=== PATIENT | male | born 1965 | race Caucasian/White ===

== ENCOUNTER 2020-08-25 16:29 | Outpatient (CLI) | payer OTHER, SELFPAY ==
--- NOTE | ~2020-08-25 | XR_ITS ---
EXAMINATION: XR shoulder RT min 2V DATE: 08/25/2020 16:53 INDICATION: Generalized right shoulder pain TECHNIQUE: AP internally and externally rotated, AP oblique externally rotated and axillary views of the right shoulder were obtained. COMPARISON: None FINDINGS: Normal alignment. No fracture. Glenohumeral joint is normal. Mild acromioclavicular osteoarthritis. Globular amorphous calcification seen overlying the superior facet footplate of the greater tuberosit y as well as along the lesser tuberosity consistent with calcific tendinitis of the supraspinatus and subscapularis tendons respectively. IMPRESSION: 1. Supraspinatus and subscapularis calcific tendinitis. 2. Mild acromioclavicular osteoarthritis. Reviewed, dictated and finalized at location A.
== END 2020-08-25 16:30 | disposition home or self-care (01) ==
LOC: ANHIMG 16:35
PROVIDERS: PCP Nurse Practitioner; Visit Provider Nurse Practitioner
DX: M25.511 Pain in right shoulder (principal); M75.31 Calcific tendinitis of right shoulder; M19.011 Primary osteoarthritis, right shoulder
CPT/HCPCS: 73030

== ENCOUNTER 2020-08-30 10:49 | Outpatient (CLI) | payer OTHER, SELFPAY ==
--- NOTE | 2020-08-30 12:00 | NEURO_ITS ---
Impression: # Complains of discomfort and numbness in left upper extremity. # Bilateral Carpal Tunnel Syndrome. # No ulnar neuropathy. # Normal needle/EMG exam. Nerve Conduction Studies Anti Sensory Summary Table Stim Site NR Peak (ms) P-T Amp (?V) Site1 Site2 Delta-P (ms) Dist (cm) Juan R (m/s) Left Median Anti Sensory (2-3nd Digit) Wrist 3.6 53.5 Wrist 2-3nd Digit 3.6 14.0 39 Wrist 3.8 46.5 Wrist 2-3nd Digit 3.6 14.0 39 Right Median Anti Sensory (2-3nd Digit) Wrist 3.4 63.2 Wrist 2-3nd Digit 3.4 14.0 41 Wrist 3.5 46.1 Wrist 2-3nd Digit 3.4 14.0 41 Left Radial Anti Sensory (Base 1st Digit) Wrist 2.4 23.9 Wrist Base 1st Digit 2.4 0.0 Right Radial Anti Sensory (Base 1st Digit) Wrist 2.2 9.2 Wrist Base 1st Digit 2.2 0.0 Left Ulnar Anti Sensory (5th Digit) Wrist 2.9 25.7 Wrist 5th Digit 2.9 14.0 48 Right Ulnar Anti Sensory (5th Digit) Wrist 2.6 35.1 Wrist 5th Digit 2.6 14.0 54 Motor Summary Table Stim Site NR Onset (ms) O-P Amp (mV) Site1 Site2 Delta-0 (ms) Dist (cm) Juan R (m/s) Left Median Motor (Abd Poll Brev) Wrist 4.3 2.4 Elbow Wrist 5.3 29.0 55 Elbow 9.6 3.7 Right Median Motor (Abd Poll Brev) Wrist 4.1 3.9 Elbow Wrist 6.5 27.0 42 Elbow 10.6 2.5 Left Ulnar Motor (Abd Dig Minimi) Wrist 2.9 6.9 A Elbow Wrist 5.5 29.0 53 A Elbow 8.4 5.4 Right Ulnar Motor (Abd Dig Minimi) Wrist 2.7 4.1 A Elbow Wrist 5.7 29.0 51 A Elbow 8.4 3.4 F Wave Studies NR F-Lat (ms) L-R F-Lat (ms) Left Median (Mrkrs) (Abd Poll Brev) 33.01 0.79 Right Median (Mrkrs) (Abd Poll Brev) 32.22 0.79 Left Ulnar (Mrkrs) (Abd Dig Min) 32.81 0.12 Right Ulnar (Mrkrs) (Abd Dig Min) 32.93 0.12 EMG Side Muscle Nerve Root Ins Act Fibs Amp Dur Recrt Comment Right 1stDorInt Ulnar C8-T1 Nml Nml Nml Nml Nml Right Ext Indicis Radial (Post Int) C7-8 Nml Nml Nml Nml Nml Right Ext Digitorum Radial (Post Int) C7-8 Nml Nml Nml Nml Nml Right BrachioRad Radial C5-6 Nml Nml Nml Nml Nml Right PronatorTeres Median C6-7 Nml Nml Nml Nml Nml Right Abd Poll Brev Median C8-T1 Nml Nml Nml Nml Nml Left 1stDorInt Ulnar C8-T1 Nml Nml Nml Nml Nml Left Ext Indicis Radial (Post Int) C7-8 Nml Nml Nml Nml Nml Left Ext Digitorum Radial (Post Int) C7-8 Nml Nml Nml Nml Nml Left BrachioRad Radial C5-6 Nml Nml Nml Nml Nml Left PronatorTeres Median C6-7 Nml Nml Nml Nml Nml Left Abd Poll Brev Median C8-T1 Nml Nml Nml Nml Nml MTDD
== END 2020-08-30 10:50 | disposition home or self-care (01) ==
PROVIDERS: PCP Family Medicine; Visit Provider Nurse Practitioner
DX: R20.0 Anesthesia of skin (principal); G56.03 Carpal tunnel syndrome, bilateral upper limbs
CPT/HCPCS: 95886; 95911

== ENCOUNTER 2020-10-27 15:55 | Outpatient (CLI) | payer OTHER, SELFPAY ==
--- NOTE | ~2020-10-27 | MR_ITS ---
EXAMINATION: MR shoulder RT wo con DATE: 10/27/2020 16:55 INDICATION: Right shoulder pain. TECHNIQUE: Magnetic resonance imaging (MRI) of the right shoulder was performed without intravenous c ontrast. Sequences included axial PD-weighted FS FSE, coronal oblique PD-weighted FS FSE and T2-weigh guzman FS FSE, and sagittal oblique T2-weighted FS FSE and T1-weighted FSE. COMPARISON: Right shoulder radiograph 08/25/2020 FINDINGS: Coracoacromial arch: The acromion undersurface is flat in morphology (type I). There is severe acromioclavicular joint ost eoarthritis including inferiorly directed osteophytes. There is mild subacromial/subdeltoid bursitis. Rotator cuff: There is mild supraspinatus and infraspinatus tendinopathy. There are calcifications of supraspinatus tendon. There is mild teres minor tendinopathy. There is mild subscapularis tendinopathy. No tear. T here is no asymmetric fatty atrophy of the rotator cuff muscle bellies. Biceps tendon and glenoid labrum: Biceps tendon is in bicipital groove. There is moderate intra-articular biceps tendinopathy. There is a tear of superior labrum from 10:00 to 12:00 (SLAP tear). Fluid: There is a small glenohumeral joint effusion. Bones/cartilage: The glenoid cartilage is normal. Humeral head cartilage is normal. IMPRESSION: 1. Mild rotator cuff tendinopathy. Calcific tendinitis of supraspinatus tendon. 2. Moderate intra-articular biceps tendinopathy. 3. SLAP tear. 4. Severe acromioclavicular joint osteoarthritis. 5. Mild subacromial/subdeltoid bursitis. 6. Small glenohumeral joint effusion. Reviewed, dictated and finalized at location A.
== END 2020-10-27 15:56 | disposition home or self-care (01) ==
PROVIDERS: PCP Family Medicine; Visit Provider Orthopaedic Surgery
DX: M25.511 Pain in right shoulder (principal); M75.81 Other shoulder lesions, right shoulder; M75.31 Calcific tendinitis of right shoulder; S43.431A Superior glenoid labrum lesion of right shoulder, initial encounter; M19.011 Primary osteoarthritis, right shoulder; M75.51 Bursitis of right shoulder; M25.411 Effusion, right shoulder
CPT/HCPCS: 73221

== ENCOUNTER 2021-03-23 15:40 | Outpatient (CLI) | payer OTHER, SELFPAY ==
--- NOTE | 2021-03-23 15:43 | ECG_ITS ---
Measurements Intervals [place] Rate: 56 P: 58 AR: 155 QRS: -2 QRSD: 107 T: 138 QT: 435 QTc: 421 Interpretive Statements SINUS BRADYCARDIA DELAYED PRECORDIAL R/S TRANSITION LEFT VENTRICULAR HYPERTROPHY AND ST-T CHANGE INFERIOR INFARCT, AGE INDETERMINATE BASELINE ARTIFACT- I, III, AVL, AVF, V5 ABNORMAL ECG Electronically Signed On 03-23-2021 16:24:32 TOP AND TRIM WORKER by London Krueger D.O.
[2021-03-23 16:26] LABS: Anion Gap 11 mmol/L (8-16); Blood Urea Nitrogen 20 mg/dL (9-20); Calcium 10.1 mg/dL (8.4-10.2); Carbon Dioxide 27 mmol/L (22-30); Chloride 101 mmol/L (98-107); Estimated Glomerular Filt Rate > 60; Glucose 179 mg/dL (65-110); Potassium 4.3 mmol/L (3.4-5.0); Sodium 139 mmol/L (137-145)
== END 2021-03-23 15:41 | disposition home or self-care (01) ==
PROVIDERS: Anesthesiology; PCP Family Medicine; Visit Provider Orthopaedic Surgery
DX: Z01.818 Encounter for other preprocedural examination (principal); E11.59 Type 2 diabetes mellitus with other circulatory complications; I10 Essential (primary) hypertension; R94.31 Abnormal electrocardiogram [ECG] [EKG]
CPT/HCPCS: 36415; 80048; 93005

== ENCOUNTER 2021-03-23 15:50 | Outpatient (CLI) | payer OTHER, SELFPAY ==
--- NOTE | ~2021-03-23 | XR_ITS ---
EXAMINATION: XR thoracic spine 2V DATE: 03/23/2021 17:02 INDICATION: Shoulder and back pain TECHNIQUE: AP and lateral views of the thoracic spine were obtained. COMPARISON: None. FINDINGS: There are bridging osteophytes at multiple levels in the spine, consistent with diffuse idi opathic skeletal hyperostosis (DISH). There is no fracture, dislocation, or subluxation. Changes of p rior cardiac surgery are noted. There are apparent patchy airspace opacities of the lungs. IMPRESSION: 1. Diffuse idiopathic skeletal hyperostosis (DISH). 2. Possible patchy airspace opacities of the lungs which could be infectious or inflammatory. Correla te for shortness of breath and/or cough. Reviewed, dictated and finalized at location F. STIGATIONS DIRECTOR IMPRESSION: 1. Diffuse idiopathic skeletal hyperostosis (DISH). 2. Possible patchy airspace opacities of the lungs which could be infectious or inflammatory. Correlate for shortness of breath and/or cough.
--- NOTE | ~2021-03-23 | XR_ITS ---
EXAMINATION:XR_CERV2-3V_CR DATE: 03/23/2021 17:01 INDICATION: Neck pain TECHNIQUE: AP, lateral, and odontoid views of the cervical spine are provided. COMPARISON: None FINDINGS: Alignment is normal. The odontoid is intact. No fracture is identified. There is reversal o f normal cervical lordosis. The vertebral body heights are maintained. There is moderate loss of inte rvertebral disc space height from C5-6 through C7-T1. Small degenerative osteophytes project from the anterior endplates of multiple vertebral bodies. There is moderate facet and uncovertebral joint ost eoarthritis of the lower cervical spine. Prevertebral soft tissues are normal. IMPRESSION: 1. Moderate lower cervical spondylosis without acute findings. Reviewed, dictated and finalized at location F. FIRST ASSIST REGISTERED NURSE
[2021-03-23 16:27] LABS: Hemoglobin A1C 7.8 % (<5.7)
== END 2021-03-23 15:51 | disposition home or self-care (01) ==
PROVIDERS: PCP Family Medicine; Visit Provider Nurse Practitioner Family
DX: E11.9 Type 2 diabetes mellitus without complications (principal); R20.0 Anesthesia of skin; M25.512 Pain in left shoulder; M48.14 Ankylosing hyperostosis [Forestier], thoracic region; R91.8 Other nonspecific abnormal finding of lung field; M47.812 Spondylosis without myelopathy or radiculopathy, cervical region
CPT/HCPCS: 36415; 72040; 72070; 80048; 83036; 93005

== ENCOUNTER 2021-03-28 00:48 | Day surgery (SDC) | payer OTHER, SELFPAY ==
[2021-03-22 12:35] VITALS: BMI 36.4
--- NOTE | 2021-03-22 12:52 | PC.NURSE ---
Report to the Outpatient Waiting Room, entrance under the green pavilion located off [facility], at time 11:30 on date 03/28/21. OR Time: 1:30. - You will be asked a series of questions to screen for COVID 19 for your protection. - A mask is required within the hospital. - No visitors are allowed at this time. Preoperative COVID Testing Requirements: No COVID Test needed if: (proof is required; if not received patient will have Rapid Test prior to entry) - Patient has received COVID Vaccine at least 14 days prior to procedure date or - Patient has positive COVID test result within last 90 days of surgery date. COVID Test needed if above criteria is not met Patients may have clear liquids (water, carbonated beverages, clear teas, apple juice) until 3 hours prior to surgery (10:30) with a maximum of 20 ounces. - No food from midnight until time of surgery Take the following medications with a SIP of water the morning of surgery: ATENOLOL Medications to discontinue per physician: VITAMINS/SUPPLEMENTS Date to take last dose: 03/24/[address] 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 No jewelry (including any body piercings) or valuables the day of surgery, leave them at home. Please take a shower or bath the night before, or the morning of, surgery with an antibacterial soap. Wear comfortable, loose fitting clothing. - Jewelry must be removed prior to entering the operating room. Rings and piercings that are not removed may be cut off. - The hospital will not accept responsibility for valuables. - Please leave all valuables, including medications, at home the day of surgery. If you are going home after surgery, a licensed locomotive driver must drive you home. - NO public transportation without another adult. - We recommend that an adult stay with you for 24 hours following discharge. - We also recommend that you do not drive, make important decision, drink alcoholic beverages, or take any drugs that were not prescribed by your health care provider for at least 24 hours after your discharge time. Follow any additional instructions given to you from your surgeon. Telephone instructions given to ZARIA UGALDE and asked if any additional questions and then verbalized understanding. Patient advised to call surgeon office or pre surgery nurse liaison [phone] if any additional questions.
--- NOTE | 2021-03-27 15:29 | WPDANESEPPF ---
Anes - Initial Pre Proc Eval Procedure: Operation Date: 03/28/21 13:30 Proposed Procedures p Left Carpal Tunnel Release - Garry Reyes MD Date/Time: 03/27/21 15:29 Surgeon: Garry Reyes MD Pre Op Diagnosis: left carpal tunnel syndrome Patient Data Age: 55 Gender: M Height: 1.73 m Weight: 108.66 kg Allergies Allergy/AdvReac Type Severity Reaction Status Date / Time ciprofloxacin Allergy Unknown unknown Verified 03/28/21 11:41 Home Medications Medication Instructions Recorded Confirmed Type aspirin 81 mg tablet,delayed 81 mg PO DAILY 01/18/19 03/28/21 History release furosemide 20 mg tablet 20 mg PO QAM 01/18/19 03/28/21 History lisinopril 20 mg tablet 20 mg PO BID 12/01/19 03/28/21 History simvastatin 40 mg tablet 40 mg PO DAILY 10/19/20 03/28/21 History allopurinol 300 mg tablet 300 mg PO DAILY #90 tablet 12/04/20 03/28/21 Rx atenolol 25 mg tablet 25 mg PO BID tablet 12/04/20 03/28/21 History potassium chloride 10 mEq 10 meq PO DAILY tablet 12/04/20 03/28/21 History tablet,extended release pioglitazone 30 mg tablet 30 mg PO DAILY #90 tablet 01/10/21 03/28/21 Rx metformin 500 mg tablet 500 mg PO BID #180 tablet 03/15/21 03/28/21 Rx arginine oxoglurate 350 mg PO DAILY 03/22/21 03/28/21 History [L-Arginine(alpha-ketoglutarat)] fiber 1 tablet PO DAILY 03/22/21 03/28/21 History multivitamin 1 tablet PO DAILY 03/22/21 03/28/21 History omega-3 fatty acids-vitamin E 1 cap PO DAILY 03/22/21 03/28/21 History [Fish Oil] methocarbamol 500 mg tablet 500 mg PO TID PRN #30 tablet 03/23/21 03/23/21 Rx tadalafil 20 mg tablet 20 mg PO DAILY PRN 03/23/21 03/23/21 History Patient hx anesthesia problems: none Family hx anesthesia problems: none Results Review: All pre-operative results and documents have been reviewed as part of the pre-operative evaluation. [facility] Past Medical History Medical History (Updated 03/27/21 @ 15:31 by Haseeb Villa MD) Arthritis Coronary artery disease due to lipid rich plaque Gout due to renal impairment Heart attack High cholesterol Hypertension Obesity DIVYA (obstructive sleep apnea) Smoker Type 2 diabetes mellitus with other circulatory complications Surgical History Surgical History H/O heart artery stent History of heart bypass surgery Family History Family History Father Family history of diabetes mellitus in first degree relative Mother Family history of heart disease in male family member before age 55 Other Depression Diabetes mellitus Family history of allergic disorder Family history of cardiovascular disease Family history of osteoarthritis Heart disease High cholesterol Hypertension Social History Social History Smoking packs per day: 0.5 Smoking cigarettes per day: 10.0 Years smoked: 30 Smoking pack-years: 15.00 Smoking status: Current every day smoker Tobacco type: cigarettes Second hand tobacco smoke exposure: Yes Smoking end date: 08/08/18 Alcohol intake: current Drinks per week: 4 Substance use: never Substance use type: does not use Living arrangements: alone Additional occupation/education comments: self-employed Gender identity (if verbalized by the patient): Male Spiritual care concerns: No Agree to blood products: Yes Anes - Eval Final PreProcedure Day of Procedure 03/27/21 15:29 Patient weight: obese Heart: regular rate and rhythm Lungs: clear to auscultation and normal air movement Airway: Mallampati scale class II Neurological: alert and oriented Last oral intake: >/= 8 hours ASA classification: III Emergent: no Anesthetic plan: proceed Anesthesia type and monitoring: general LMA Results Review: All pre-operative results and documents have been reviewed as part of the pre-operative evaluation. Informe
[2021-03-28] VITALS (8 sets, daily range): BP systolic 85–146; BP diastolic 51–93; PULSE 53–66; RESP 10–20; TEMP 36.1–36.5; O2SAT 96–99
--- NOTE | 2021-03-28 07:22 | WPDHPUPDATE1 ---
History and Physical Update Update Date/Time: 03/28/21 07:22 History and Physical has been reviewed, including an updated exam of the patient. There are NO changes in the patient's condition. Risks, benefits, and alternatives have been discussed and questions answered. Patient agrees to proceed with procedure.
[2021-03-28] MEDS: LACTATED RINGERS 1,000 ML 30 ML IV CONT (12:40)
[2021-03-28 12:47] LABS: Glucose Point of Care 167 mg/dl (65-105)
[2021-03-28] MEDS: ACETAMINOPHEN 500 MG TABLET 1000 MG PO (13:00)
[2021-03-28] MEDS: CELECOXIB 200 MG CAPSULE PO (13:00)
--- NOTE | 2021-03-28 14:24 | PM.IMHP ---
H&P: HPI History of Present Illness Date/Time: 03/28/21 14:24 Pt presents with Right shoulder pain. He states the pain is located at the superior shoulder, at the AC joint-region, that does not radiate. ROM is good unless he overworks it, then it becomes slightly limited. He notes numbness/tingling in both hands. He recently underwent bilateral EMG/NCS which showed bilateral CTS. MRI reported calcific tendinitis, SLAP tear and ACJ DJD. He received a subacromial injection 11/20/20 which, he states, worked very well for a few weeks. His pain is beginning to return. He is not yet needing medication for treatment. His left hand has carpal tunnel syndrome and he is here for left carpal tunnel release. Dominant hand: right Current symptoms: Reports stiffness and weakness Location: ACJ and anterior Character: intermittent Onset: >1 year Exacerbated by: lifting and prolonged activity Previous treatments: Anti-inflammatory meds: right, Ice: right and Injections: right Improved by treatment/surgery: some Chief Complaint: LEFT HAND CARPAL TUNNEL SYNDROME Review of Systems Review of Systems: All systems reviewed & are unremarkable except as noted in HPI and below PMFSH Past Medical History Medical History Arthritis Coronary artery disease due to lipid rich plaque Gout due to renal impairment Heart attack High cholesterol Hypertension Obesity DIVYA (obstructive sleep apnea) Smoker Type 2 diabetes mellitus with other circulatory complications Surgical History Surgical History H/O heart artery stent History of heart bypass surgery Family History Family History Father Family history of diabetes mellitus in first degree relative Mother Family history of heart disease in male family member before age 55 Other Depression Diabetes mellitus Family history of allergic disorder Family history of cardiovascular disease Family history of osteoarthritis Heart disease High cholesterol Hypertension Social History Social History Smoking packs per day: 0.5 Smoking cigarettes per day: 10.0 Years smoked: 30 Smoking pack-years: 15.00 Smoking status: Current every day smoker Tobacco type: cigarettes Second hand tobacco smoke exposure: Yes Smoking end date: 08/08/18 Alcohol intake: current Drinks per week: 4 Substance use: never Substance use type: does not use Living arrangements: alone Additional occupation/education comments: self-employed Gender identity (if verbalized by the patient): Male Spiritual care concerns: No Agree to blood products: Yes Meds Home Medications and Allergies Home Medications Medication Instructions Recorded Confirmed Type aspirin 81 mg tablet,delayed 81 mg PO DAILY 01/18/19 03/28/21 History release furosemide 20 mg tablet 20 mg PO QAM 01/18/19 03/28/21 History lisinopril 20 mg tablet 20 mg PO BID 12/01/19 03/28/21 History simvastatin 40 mg tablet 40 mg PO DAILY 10/19/20 03/28/21 History allopurinol 300 mg tablet 300 mg PO DAILY #90 tablet 12/04/20 03/28/21 Rx atenolol 25 mg tablet 25 mg PO BID tablet 12/04/20 03/28/21 History potassium chloride 10 mEq 10 meq PO DAILY tablet 12/04/20 03/28/21 History tablet,extended release pioglitazone 30 mg tablet 30 mg PO DAILY #90 tablet 01/10/21 03/28/21 Rx metformin 500 mg tablet 500 mg PO BID #180 tablet 03/15/21 03/28/21 Rx arginine oxoglurate 350 mg PO DAILY 03/22/21 03/28/21 History [L-Arginine(alpha-ketoglutarat)] fiber 1 tablet PO DAILY 03/22/21 03/28/21 History multivitamin 1 tablet PO DAILY 03/22/21 03/28/21 History omega-3 fatty acids-vitamin E 1 cap PO DAILY 03/22/21 03/28/21 History [Fish Oil] methocarbamol 500 mg tablet 500 mg PO TID PRN #30 tablet 03/23/21 03/23/21 Rx tadalafil 20 mg tab
[2021-03-28] MEDS: ceFAZolin 2 GM/D5W 50 ML 2 GM/50 ML BAG IVPB (14:35)
--- NOTE | 2021-03-28 15:34 | W.PM.PROC2 ---
Procedure Note - Detailed Date of Procedure 03/28/21 Pre-op Diagnosis left carpal tunnel syndrome Post-op Diagnosis same Procedure Performed LEFT CTR Surgeon Garry Reyes MD Anesthesia general Description of Procedure THE LEFT UPPER EXTREMITY WAS PREPPED AND DRAPED IN THE STERILE FASHION. THE CARPAL TUNNEL WAS MARKED FROM THE FLEXED RING FINGER. THE TORNEQUET WAS INFLATED. THE INCISION WAS MADE AT THE MID PALM DOWN THROUGH THE SUBCUTANEOUS TISSUES. THE PALMAR FASCIA WAS IDENTIFIED. AN INCISION WAS MADE THROUGH THE PALMAR FASCIA UNTIL THE CARPAL TUNNEL WAS ENTERED. A MOSQUITO HEMOSTAT WAS USED TO PROTECT THE MEDIAN NERVE WHILE THE INCISION TO THE PALMAR FASCIA WAS COMPLETE PROXIMALLY AND DISTALLY TO THE CARDINAL LINE. NEXT, THE TRANSVERSE CARPAL LIGAMENT WAS IDENTIFIED. A FREIER ELEVATOR WAS USED TO SEPARATE THE NERVE FROM THE LIGAMENT. A METZENBAUM SCISSORS WAS THEN USED TO INCISE THE TRANSVERSE CARPAL LIGAMENT UNTIL THERE WAS A COMPLETE RELEASE OF THE CARPAL TUNNEL. THE MEDIAN NERVE WAS INTACT. THE TOURNEQUET WAS DEFLATED. THE BLEEDERS WERE CAUTERIZED. THE WOUND WAS WASHED. THE SKIN WAS APPROXIMATED WITH 4-0 NYLON SUTURE. STERILE DRESSING WAS APPLIED. PATIENT WAS EXTUBATED AND SENT TO THE RECOVERY ROOM. Estimated Blood Loss 5 Complications No immediate complications Condition stable Disposition PACU
[2021-03-28 15:52] LABS: Glucose Point of Care 168 mg/dl (65-105)
== END 2021-03-28 17:10 | disposition home or self-care (01) ==
PROVIDERS: PCP Family Medicine; Visit Provider Orthopaedic Surgery
PROC: (CPT 64721; principal; 2021-03-28 13:30)
DX: G56.02 Carpal tunnel syndrome, left upper limb (principal); I25.10 Atherosclerotic heart disease of native coronary artery without angina pectoris; I10 Essential (primary) hypertension; I25.2 Old myocardial infarction; M10.9 Gout, unspecified; E11.9 Type 2 diabetes mellitus without complications; E78.00 Pure hypercholesterolemia, unspecified; G47.33 Obstructive sleep apnea (adult) (pediatric); E66.9 Obesity, unspecified; Z68.36 Body mass index [BMI] 36.0-36.9, adult; Z95.1 Presence of aortocoronary bypass graft; Z95.5 Presence of coronary angioplasty implant and graft; F17.210 Nicotine dependence, cigarettes, uncomplicated; Z79.82 Long term (current) use of aspirin; Z79.84 Long term (current) use of oral hypoglycemic drugs
CPT/HCPCS: 64721; 82948; A9270; J0690; J1100; J2250; J2405; J2704; J3010; J7120

== ENCOUNTER 2022-01-01 17:02 | Outpatient (CLI) | payer OTHER, SELFPAY ==
[2022-01-01 17:39] LABS: Basophils Absolute Auto 0.1 K/mm3 (0.0-0.1); Basophils Percent Auto 0.6 % (0.2-1.2); Eosinophils Absolute Auto 0.3 K/mm3 (0-0.3); Eosinophils Percent Auto 3.9 % (0-4.4); Hematocrit 42.1 % (42.0-52.0); Immature Granulocyte Absolute 0.03 K/mm3 (0.00-0.031); Immature Granulocyte Percent A 0.4 % (0-0.5); Lymphocytes Absolute Auto 1.63 K/mm3 (0.9-3.2); Lymphocytes Percent Auto 19.8 % (18.3-44.2); Mean Corpuscular HGB Conc 35.6 g/dl (32-36); Mean Corpuscular Hemoglobin 32.7 pg (26-34); Mean Corpuscular Volume 91.7 fl (80-100); Mean Platelet Volume 10.6 fl (7.4-10.4); Monocytes Absolute Auto 0.7 K/mm3 (0.1-0.6); Neutrophils Absolute Auto 5.5 K/mm3 (1.3-6.7); Neutrophils Percent Auto 66.3 % (45.5-73.1); Platelet Count Result 198 k/mm3 (150-375); Red Blood Count 4.59 M/mm3 (4.6-6.20); Red Cell Distribution Width 13.7 % (11.5-14.5); White Blood Count 8.2 K/mm3 (4.5-10.0)
[2022-01-01 17:53] LABS: Alanine Aminotransferase 20 U/L (6-50); Albumin Level 4.6 g/dL (3.5-5.1); Alkaline Phosphatase 91 U/L (38-126); Anion Gap 12 mmol/L (8-16); Aspartate Amino Transferase 21 U/L (17-59); Bilirubin,Total 0.6 mg/dL (0.2-1.3); Blood Urea Nitrogen 13 mg/dL (9-20); Calcium 9.3 mg/dL (8.4-10.2); Carbon Dioxide 25 mmol/L (22-30); Chloride 102 mmol/L (98-107); Cholesterol 183 mg/dL (0-200); Estimated Glomerular Filt Rate > 60; Glucose 115 mg/dL (65-110); HDL Direct 68 mg/dL; Potassium 3.5 mmol/L (3.4-5.0); Sodium 139 mmol/L (137-145); Triglycerides 117 mg/dL (<150)
[2022-01-01 18:04] LABS: LDL Cholesterol Direct 74 mg/dL
[2022-01-01 18:23] LABS: Prostate Specific Antigen 0.8 ng/mL (< OR = 4.0)
[2022-01-01 18:37] LABS: Creatinine Urine 56.3 mg/dL
[2022-01-01 18:54] LABS: Vitamin D 25 Hydroxy 32.1 ng/mL
[2022-01-01 19:00] LABS: MALB Creatinine Ratio 415.5 mg/g (0-30); Microalbumin Urine Random 233.9 mg/L (0-16.7)
[2022-01-01 20:11] LABS: Hemoglobin A1C 6.6 % (<5.7)
== END 2022-01-01 17:03 | disposition home or self-care (01) ==
LOC: ANHLAB 17:03
PROVIDERS: PCP Family Medicine; Visit Provider Nurse Practitioner Family
DX: Z12.5 Encounter for screening for malignant neoplasm of prostate (principal); E11.9 Type 2 diabetes mellitus without complications; E55.9 Vitamin D deficiency, unspecified; E78.5 Hyperlipidemia, unspecified; E03.9 Hypothyroidism, unspecified; I10 Essential (primary) hypertension
CPT/HCPCS: 36415; 80053; 80061; 82043; 82306; 83036; 84153; 84443; 85025; G0103

== ENCOUNTER 2022-06-27 17:12 | Outpatient (CLI) | payer OTHER, SELFPAY ==
--- NOTE | ~2022-06-27 | XR_ITS ---
EXAMINATION: XR chest 2V 06/27/2022 17:25 INDICATION: Chest pain PROCEDURE: 2 view chest COMPARISON: 03/31/2006 FINDINGS: The lungs are clear. The cardiomediastinal silhouette is within normal limits. There are no pleural effusions. There is no pneumothorax suspected. Status post median sternotomy for CABG. IMPRESSION: 1: NO ACUTE CARDIOPULMONARY DISEASE. Reviewed, dictated and finalized at location A.
[2022-06-27 18:07] LABS: Hemoglobin A1C 6.6 % (<5.7)
== END 2022-06-27 17:13 | disposition home or self-care (01) ==
LOC: ANHIMG 17:14
PROVIDERS: PCP Family Medicine; Visit Provider Nurse Practitioner Family
DX: R07.89 Other chest pain (principal); E11.9 Type 2 diabetes mellitus without complications
CPT/HCPCS: 36415; 71046; 80053; 80061; 83036

== ENCOUNTER 2023-01-15 17:01 | Outpatient (CLI) | payer OTHER, SELFPAY ==
[2023-01-15 18:07] LABS: Basophils Percent Auto 0.5 % (0.2-1.2); Eosinophils Absolute Auto 0.2 K/mm3 (0-0.3); Eosinophils Percent Auto 2.6 % (0-4.4); Hemoglobin 14.5 g/dL (14.0-18.0); Immature Granulocyte Absolute 0.01 K/mm3 (0.00-0.031); Immature Granulocyte Percent A 0.2 % (0-0.5); Lymphocytes Absolute Auto 1.11 K/mm3 (0.9-3.2); Mean Corpuscular HGB Conc 34.5 g/dl (32-36); Mean Corpuscular Hemoglobin 32.2 pg (26-34); Mean Corpuscular Volume 93.3 fl (80-100); Mean Platelet Volume 10.7 fl (7.4-10.4); Monocytes Absolute Auto 0.6 K/mm3 (0.1-0.6); Monocytes Percent Auto 9.8 % (2.6-8.5); Neutrophils Percent Auto 67.9 % (45.5-73.1); Platelet Count Result 199 k/mm3 (150-375); Red Cell Distribution Width 13.9 % (11.5-14.5); White Blood Count 5.8 K/mm3 (4.5-10.0)
[2023-01-15 18:54] LABS: Alanine Aminotransferase 18 U/L (6-50); Albumin Level 4.6 g/dL (3.5-5.1); Alkaline Phosphatase 78 U/L (38-126); Anion Gap 8 mmol/L (8-16); Aspartate Amino Transferase 24 U/L (17-59); Bilirubin,Total 0.7 mg/dL (0.2-1.3); Blood Urea Nitrogen 15 mg/dL (9-20); Calcium 9.6 mg/dL (8.4-10.2); Carbon Dioxide 23 mmol/L (22-30); Chloride 106 mmol/L (98-107); Cholesterol 180 mg/dL (0-200); Estimated Glomerular Filt Rate > 60; Glucose 100 mg/dL (65-110); HDL Direct 60 mg/dL; LDL Cholesterol Direct 90 mg/dL; Sodium 137 mmol/L (137-145); Triglycerides 54 mg/dL (<150)
[2023-01-15 19:15] LABS: Hemoglobin A1C 6.2 % (<5.7)
== END 2023-01-15 17:02 | disposition home or self-care (01) ==
LOC: ANHLAB 17:02
PROVIDERS: PCP Family Medicine; Visit Provider Nurse Practitioner Family
DX: R73.03 Prediabetes (principal); I10 Essential (primary) hypertension; Z13.220 Encounter for screening for lipoid disorders; Z13.29 Encounter for screening for other suspected endocrine disorder; Z00.00 Encounter for general adult medical examination without abnormal findings
CPT/HCPCS: 36415; 80053; 80061; 83036; 84443; 85025

== ENCOUNTER 2023-12-09 12:22 | Outpatient (CLI) | payer OTHER, SELFPAY ==
[2023-12-09 12:58] LABS: Basophils Absolute Auto 0.1 K/mm3 (0.0-0.1); Basophils Percent Auto 0.7 % (0.2-1.2); Eosinophils Absolute Auto 0.4 K/mm3 (0-0.3); Eosinophils Percent Auto 4.8 % (0-4.4); Hematocrit 41.3 % (42.0-52.0); Hemoglobin 14.1 g/dL (14.0-18.0); Immature Granulocyte Absolute 0.02 K/mm3 (0.00-0.031); Immature Granulocyte Percent A 0.3 % (0-0.5); Lymphocytes Absolute Auto 1.44 K/mm3 (0.9-3.2); Lymphocytes Percent Auto 19.8 % (18.3-44.2); Mean Corpuscular HGB Conc 34.1 g/dl (32-36); Mean Corpuscular Hemoglobin 32.6 pg (26-34); Mean Corpuscular Volume 95.6 fl (80-100); Mean Platelet Volume 10.6 fl (7.4-10.4); Monocytes Absolute Auto 0.8 K/mm3 (0.1-0.6); Monocytes Percent Auto 11.2 % (2.6-8.5); Neutrophils Absolute Auto 4.6 K/mm3 (1.3-6.7); Neutrophils Percent Auto 63.2 % (45.5-73.1); Platelet Count Result 197 k/mm3 (150-375); Red Blood Count 4.32 M/mm3 (4.6-6.20); White Blood Count 7.3 K/mm3 (4.5-10.0)
[2023-12-09 13:09] LABS: Hemoglobin A1C 6.2 % (<5.7)
[2023-12-09 13:11] LABS: Alanine Aminotransferase 19 U/L (6-50); Albumin Level 4.6 g/dL (3.5-5.1); Alkaline Phosphatase 64 U/L (38-126); Anion Gap 9 mmol/L (4-12); Aspartate Amino Transferase 28 U/L (17-59); Bilirubin,Total 0.6 mg/dL (0.2-1.3); Blood Urea Nitrogen 21 mg/dL (9-20); Calcium 9.4 mg/dL (8.4-10.2); Carbon Dioxide 23 mmol/L (22-30); Chloride 106 mmol/L (98-107); Cholesterol 161 mg/dL (0-200); Estimated Glomerular Filt Rate > 60; Glucose 124 mg/dL (65-110); HDL Direct 59 mg/dL; Potassium 4.3 mmol/L (3.4-5.0); Sodium 138 mmol/L (137-145); Triglycerides 93 mg/dL (<150)
[2023-12-09 13:21] LABS: LDL Cholesterol Direct 73 mg/dL
[2023-12-09 13:25] LABS: Creatinine Urine 98.5 mg/dL
[2023-12-09 13:27] LABS: Vitamin D 25 Hydroxy 37.6 ng/mL
[2023-12-09 13:28] LABS: MALB Creatinine Ratio 120.6 mg/g (0-30); Microalbumin Urine Random 118.8 mg/L (0-16.7)
[2023-12-09 13:40] LABS: Prostate Specific Antigen 0.8 ng/mL (< OR = 4.0)
== END 2023-12-09 12:23 | disposition home or self-care (01) ==
LOC: ANHLAB 12:24
PROVIDERS: PCP Family Medicine; Visit Provider Nurse Practitioner Family
DX: Z00.00 Encounter for general adult medical examination without abnormal findings (principal); Z12.5 Encounter for screening for malignant neoplasm of prostate; R20.2 Paresthesia of skin; E55.9 Vitamin D deficiency, unspecified; E11.9 Type 2 diabetes mellitus without complications; E78.5 Hyperlipidemia, unspecified; I10 Essential (primary) hypertension
CPT/HCPCS: 36415; 80053; 80061; 82043; 82306; 82607; 83036; 84153; 84443; 85025; G0103

== ENCOUNTER 2024-06-08 15:41 | Outpatient (CLI) | payer OTHER, SELFPAY ==
--- OUTSIDE RECORDS SUMMARY | 2024-06-08 17:07 | XMS_ITS | Clinical Summary ---
Author Organization [facility] Address [address] [place] [address] Care Team Providers Care Validation Specialist Name Role Phone Thiago Davies MD Unavailable [phone] Chandrika Kurtz NP Primary Care Provider [phone] Allergies Active Allergy Reactions Criticality Noted Date Comments Cephalexin Swelling 02/09/2016 Medications aspirin EC (ASPIRIN EC) 81 MG tablet Take 1 tablet by mouth daily. 12/25/19 13 Active nitroglycerin (NITROSTAT) 0.[address] 1 tablet (0.4 mg total) under the tongue every 5 (five) minutes as needed for Chest Pain (Maximum of 3 doses.). If no relief, contact 911. 25 tablet 1 07/18/19 17 Active allopurinol 300 MG tablet Take 1 tablet (300 mg total) by mouth daily. 90 tablet 07/31/19 19 Active metFORMIN 500 MG tablet Take 1 tablet (500 mg total) by mouth 2 (two) times daily with meals. Contact primary care physician for further refills 60 tablet 1 08/17/19 20 Active glipiZIDE (GLUCOTROL) 5 MG tablet Take 1 tablet by mouth daily. 02/07/20 22 Active methocarbamol (ROBAXIN) 500 MG tablet Take 500 mg by mouth 3 (three) times daily as needed. 03/28/19 23 Active lisinopril (PRINIVIL) 40 MG tablet Take 1 tablet (40 mg total) by mouth daily. 90 tablet 3 04/16/19 23 Active tadalafil (CIALIS) 20 MG tablet Take 1 tablet (20 mg total) by mouth daily as needed. 06/01/19 23 Active pioglitazone (ACTOS) 30 MG tablet Take 1 tablet (30 mg total) by mouth daily. 08/27/19 23 Active furosemide (LASIX) 20 MG tablet Take 1 tablet by mouth once daily 90 tablet 3 08/05/19 24 Active potassium chloride CR (K-TAB) 10 MEQ Tab CR tablet Take 1 tablet by mouth once daily 90 tablet 3 08/05/19 24 Active rosuvastatin (CRESTOR) 40 MG tablet take 1 tablet by mouth nightly at bedtime 90 tablet 3 08/05/19 24 Active atenolol (TENORMIN) 25 MG tablet Take 1 tablet by mouth twice daily 180 tablet 3 09/17/19 24 Active potassium chloride CR 10 MEQ tablet Take 1 tablet (10 mEq total) by mouth daily. 90 tablet 2 06/27/19 21 022 Discontinued Active Problems Problem Noted Date Diagnosed Date Chest pain 08/10/2019 DIVYA on CPAP 02/09/2016 CAD (coronary artery disease) Essential hypertension Hyperlipidemia Immunizations Name Administration Dates Next Due Fluarix 12/30/2011 PFIZER COVID-19 (ORIGINAL FO RMULATION, PURPLE CAP) mRNA, LNP-S, PF, 30 MCG/0.3 ML DOSE 06/06/2020,05/16/2020 Family History Medical History Relation Comments Coronary artery disease Father no premature vascular disease Other Relation Status Comments Father Other Social History Tobacco Use Types Packs/Day Years Used Date Smoking Tobacco: Former Cigarettes Q uit: 12/2013 Smokeless Tobacco: Never Tobacco Cessation:Counseling Given: Not Answered Comments:smoked for 15 years Alcohol Use Standard Drinks/Week Comments Yes 0 (1 standard drink = 0.6 oz pur e alcohol) socially Sex and Gender Information Value Date Recorded Sex Assigned at Not on file Legal Sex Male 3:40 AM CDT Gender Identity Not on file Sexual Orientation Not on file 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 Not on file Not on file Last Filed Vital Signs Vital Sign Reading Time Taken Comments Blood Pressure 122/88 04/07/2023 1:08 PM NEWSP[employer]ER SU[employer]CRIPTION SOLICITOR Pulse 65 04/07/2023 1:08 PM NEWSP[employer]ER SUBSCRIPTION SOLICITOR Temperature 36.7 C (98 F) 08/17/2019 8:15 AM CDT Respiratory Rate 20 08/17/2019 4:00 AM CDT Oxygen Saturation 98% 04/07/2023 1:08 PM NEWSPAPER SUBSCRIPTION SOLICITOR Inhaled Oxygen Concentration - - Weight 105.2 kg (232 lb) 04/07/2023 1:08 PM NEWSPAPER SUBSCRIPTION SOLICITOR Height 172.7 cm (5' 8 ) 04/07/2023 1:08 PM NEWSPAPER SUBSCRIPTION SOLICITOR Body Mass Index 35.28 04/07/2023 1:08 PM NEWSPAPER SUBSCRIPTION SOLICITOR Plan of Treatment Health Maintenance Due Date Last Done Comments Colorectal Cancer Screening Colonoscopy (10 Years) 1967 Annual Physical 07/13/1970 Pneumococcal Vaccine: Pediatrics (0 to 5 Years) and At-Risk Patients (6 to 64 Years) (1 of 2 - PCV) 07/13/1973 Hepatitis C 07/13/1985 DTaP, Tdap and Td Vaccines (1 - Tdap) 07/13/1986 Hepatitis B Vaccines (1 of 3 - 19+ 3-dose series) 07/13/1986 Zoster Vaccines (1 of 2) 07/13/2017 COVID-19 Vaccine (3 - season) 2023 06/06/2020, 05/16/2020 Influenza Adult (#1) 2023 12/30/2011 ASCVD LDL 05/07/2024 05/07/2023, 09/2022, 10/03/2021, Additional history exists Meningococcal B Vaccine Aged Out No l onger eligible based on patient's age to complete this topic Meningococcal Vaccine Aged Out No miguel eliezer eligible based on patient's age to complete this topic RSV Immunizations Under 20 Months Aged Out No longer eligible based on patient's age to complete this topic Medical Devices Implanted Type Area Sap Project Manager Device Identifier Shelf Expiration Date Model / Serial / Lot Wire Sut 18in [id number] 7;.5 False Pass; Ccs-1 Mfil; Cnv - [id number] Implanted:Qty: 3 on 08/13/2019 by Scotty Chiang RNFA at [facility] Wire N/A: Sternum [employer] 12/09/2023 [id number] / / [id number] Description:STERNAL WIRES X 3 SANDEE BUTCHER ALSO HELPED WITH WIRES Suture Sternotomy Kit - [id number] Implanted:Qty: 5 on 08/13/2019 by Scotty Chiang RNFA at [facility] Wire N/A: Sternum [employer] 12/09/2023 [id number] / / [id number] Description:STERNAL WIRES X 5 SANDEE ETIENNE ALSO HELPED WITH WIRES Procedures Procedure Name Priority Date/Time Associated Diagnosis Comments LIPID PANEL Routine 05/07/2023 4:34 PM NEWSP[employer]ER SU[employer]CRIPTION SOLICITOR Coronary artery disease involving [place] coronary artery of [place] heart without angina pectoris from Last 3 Months or Most Recently Relevant to Health Maintenance Results * LIPID PANEL (05/07/2023 4:34 PM NEWSPAPER SUBSCRIPTION SOLICITOR) CHOLESTEROL 151 <200 MG/DL 05/07/2023 5:31 PM NEWSPAPER SUBSCRIPTION SOLICITOR [facility] TRIGLYCERIDES 78 <150 MG/DL 05/07/2023 5:[address] [facility] HDL 67 >40.0 MG/DL 05/07/2023 5:[address] [facility] LDL (CALCULATED) 68 <100 MG/DL 05/07/19 5:[address] [facility] NON HDL CHOLESTEROL 84 <130 MG/DL 05/07 5:[address] [facility] CHOL/HDL RATIO 2.3 0.0 - 4.5 05/07/2023 5:[address] [facility] VLDL CALCULATION 16 5 - 55 MG/DL 05/07/2023 5:[address] [facility] LIPID INTERPRETATION 05/07/2023 5:[address] [facility] Comment: NIH CONCENSUS REPORT RECOMMENDATIONS: ADULT CHILD LOW RISK: CHOLESTEROL <200 <170 TRIGLYCERIDE <150 --- HDL >=60 --- LDL <100 <110 BORDERLINE: CHOLESTEROL 200-239 170-199 TRIGLYCERIDE 150-199 --- HDL 40-59 --- LDL 100-159 110-129 HIGH RISK: CHOLESTEROL >=240 >=200 TRIGLYCERIDE >=200 --- HDL <40 --- LDL >=160 >=130 05/07/2023 4:34 PM NEWSPAPER SUBSCRIPTION SOLICITOR us Rony Olea NP LABORATORY Final Result [facility] [address] [place] [address], from Last 3 Months or Most Recently Relevant to Health Maintenance Insurance GREER Advance Directives * Full Code (Latest Code Status on File) Date Activated Date Inactivated Comments 08/10/2019 2:15 PM 08/17/2019 6:49 PM * Full Code Date Activated Date Inactivated Comments 08/10/2019 12:56 AM 08/10/2019 2:15 PM Care Teams Validation Specialist Relationship Specialty Start Date End Date Chandrika Kurtz NP [facility]. [address] [place] [address] PCP - General NURSE PRACTITIONER 08/09/19 Thiago Davies MD [facility] [address] [place] [address] [place] [employer] Operator CARDIOVASCULAR DISEASE 05/22/17
--- OUTSIDE RECORDS SUMMARY | 2024-06-08 17:07 | XMS_ITS | Encounter Summary ---
Author Organization [facility] Address [facility] [place] [address] Care Team Providers Care Repair Department Manager Name Role Phone Thiago Davies MD Unavailable [phone] Chandrika Kurtz NP Primary Care Provider [phone] Encounter Details Date Type Department Care Team (Late st Contact Info) Description 08/05/2017 Abstract [facility], [facility] [address] [place], [place] [id number] Sharif Sorensen MA Social History Tobacco Use Types Packs/Day Years Used Date Smoking Tobacco: Former Cigarettes Q uit: 12/2013 Smokeless Tobacco: Never Comments:smoked for 15 years Alcohol Use Standard Drinks/Week Comments Yes 0 (1 standard drink = 0.6 oz pur e alcohol) socially Sex and Gender Information Value Date Recorded Sex Assigned at Not on file Legal Sex Male 3:40 AM CDT Gender Identity Not on file Sexual Orientation Not on file 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 Not on file Not on file documented as of this encounter Plan of Treatment Not on file documented as of this encounter Procedures Procedure Name Priority Date/Time Associated Diagnosis Comments CBC (OUTSIDE LAB) Routine 05/19/2019 COMPREHENSIVE METABOLIC PANEL Routine 05/19/2019 LIPID PANEL Routine 05/19/2019 HEMOGLOBIN, GLYCOSYLATED Routine 05/19/2019 CBC (OUTSIDE LAB) Routine 06/11/2017 LIPID PANEL Routine 06/11/2017 HEMOGLOBIN, GLYCOSYLATED Routine 06/11/2017 THYROID STIM HORMONE TSH Routine 06/11/2017 documented in this encounter Results * HEMOGLOBIN, GLYCOSYLATED (05/19/2019) HGB A1C 8.6 05/19/2019 us Doc [facility]AT[facility] Final Result * LIPID PANEL (05/19/2019) Pathologist [facility] CHOLESTEROL 166 HDL 57 TRIGLYCERIDES 182 LDL (CALCULATED) 73 05/19/2019 us Doc [facility] Final Result * COMPREHENSIVE METABOLIC PANEL (05/19/2019) SODIUM S/P/B 138 POTASSIUM S/P/B 4.1 CO2 28 CHLORIDE S/P/B 103 GLUCOSE 177 mg/dL CALCIUM S/P/B 9.1 BUN 12 CREATININE S/P/B 0.84 0.7 - 1.3 EGFR AFR. AMER. >60 EGFR NON-AFR. AMER. >60 <=90 ALKALINE PHOSPHATASE S/P/B 62 ALT 12 AST 11 BILIRUBIN TOTAL S/P/B 0.5 ALBUMIN S/P/B 4.1 3.5 - 5.0 TOTAL PROTEIN S/P/B 6.6 05/19/2019 us Doc [facility] Final Result * CBC (OUTSIDE LAB) (05/19/2019) WBC 7.8 HGB 14.5 HCT 41.5 PLT 244 05/19/2019 us Doc [facility] LAB-OUTSIDE/ABSTRACTED Final Result * HEMOGLOBIN, GLYCOSYLATED (06/11/2017) HGB A1C 9.0 06/11/2017 us Doc [facility] Edited Resul t - Final * THYROID STIM HORMONE, TSH (06/11/2017) TSH 3.915 06/11/2017 us Doc [facility] Final Result * LIPID PANEL (06/11/2017) CHOLESTEROL 234 HDL 51 TRIGLYCERIDES 208 LDL (CALCULATED) 141 06/11/2017 us Doc [facility] Final Result * CBC (OUTSIDE LAB) (06/11/2017) WBC 9.4 HGB 15.3 HCT 45.2 PLT 243 06/11/2017 us Doc [facility] LAB-OUTSIDE/ABSTRACTED Final Result documented in this encounter Visit Diagnoses Not on filedocumented in this encounter Care Teams Repair Department Manager Relationship Specialty Start Date End Date Chandrika Kurtz NP [facility] [address] [place] [address] PCP - General NURSE PRACTITIONER 08/09/19 Thiago Davies MD [facility] [address] [place] [address] [employer] [employer] Loss Control Consultant CARDIOVASCULAR DISEASE 05/22/17 documented as of this encounter
[2024-06-08 19:53] LABS: Basophils Absolute Auto 0.1 K/mm3 (0.0-0.1); Basophils Percent Auto 0.8 % (0.2-1.2); Eosinophils Absolute Auto 0.3 K/mm3 (0-0.3); Eosinophils Percent Auto 4.2 % (0-4.4); Hematocrit 42.3 % (42.0-52.0); Hemoglobin 14.4 g/dL (14.0-18.0); Immature Granulocyte Absolute 0.02 K/mm3 (0.00-0.031); Immature Granulocyte Percent A 0.3 % (0-0.5); Lymphocytes Absolute Auto 1.01 K/mm3 (0.9-3.2); Lymphocytes Percent Auto 13.3 % (18.3-44.2); Mean Corpuscular Hemoglobin 32.1 pg (26-34); Mean Corpuscular Volume 94.4 fl (80-100); Mean Platelet Volume 11.4 fl (7.4-10.4); Monocytes Absolute Auto 0.6 K/mm3 (0.1-0.6); Monocytes Percent Auto 8.3 % (2.6-8.5); Neutrophils Absolute Auto 5.5 K/mm3 (1.3-6.7); Neutrophils Percent Auto 73.1 % (45.5-73.1); Platelet Count Result 222 k/mm3 (150-375); Red Blood Count 4.48 M/mm3 (4.6-6.20); Red Cell Distribution Width 14.8 % (11.5-14.5); White Blood Count 7.6 K/mm3 (4.5-10.0)
[2024-06-08 20:06] LABS: Alanine Aminotransferase 14 U/L (6-50); Albumin Level 4.4 g/dL (3.5-5.1); Alkaline Phosphatase 86 U/L (38-126); Anion Gap 7 mmol/L (4-12); Aspartate Amino Transferase 24 U/L (17-59); Bilirubin,Total 0.7 mg/dL (0.2-1.3); Blood Urea Nitrogen 16 mg/dL (9-20); Calcium 9.8 mg/dL (8.4-10.2); Carbon Dioxide 29 mmol/L (22-30); Chloride 105 mmol/L (98-107); Cholesterol 166 mg/dL (0-200); Estimated Glomerular Filt Rate > 60; Glucose 136 mg/dL (65-110); HDL Direct 58 mg/dL; Potassium 3.9 mmol/L (3.4-5.0); Sodium 141 mmol/L (137-145); Triglycerides 88 mg/dL (<150)
[2024-06-08 20:17] LABS: LDL Cholesterol Direct 74 mg/dL
[2024-06-08 20:21] LABS: Hemoglobin A1C 6.1 % (<5.7)
[2024-06-08 20:27] LABS: Vitamin D 25 Hydroxy 35.4 ng/mL
[2024-06-08 20:41] LABS: Thyroid Stimulating Hormone Reflex 0.767 uIU/mL (0.465-4.68)
[2024-06-08 21:06] LABS: Creatinine Urine 249.3 mg/dL
[2024-06-08 21:33] LABS: Microalbumin Urine Random 314.2 mg/L (0-16.7)
== END 2024-06-08 15:42 | disposition home or self-care (01) ==
PROVIDERS: PCP Family Medicine; Visit Provider Nurse Practitioner Family
DX: E11.9 Type 2 diabetes mellitus without complications (principal); I10 Essential (primary) hypertension; Z12.5 Encounter for screening for malignant neoplasm of prostate; E78.5 Hyperlipidemia, unspecified; E55.9 Vitamin D deficiency, unspecified
CPT/HCPCS: 36415; 80053; 80061; 82043; 82306; 83036; 84153; 84443; 85025; G0103

== ENCOUNTER 2024-08-23 16:13 | Outpatient (CLI) | payer OTHER, SELFPAY ==
--- NOTE | ~2024-08-23 | CT_ITS ---
EXAMINATION: CT sinus wo con DATE: 08/23/2024 16:41 INDICATION: Nasal polyps TECHNIQUE: Computed tomography (CT) of the paranasal sinuses was performed without intravenous contra st. The dose-length product was 209.98 mGy-cm. Automated exposure control and iterative reconstructio n technique were employed. COMPARISON: None FINDINGS: There is mucosal thickening of the maxillary and ethmoid sinuses. No mucoperiosteal reactio n. There is intracranial atherosclerosis. Mastoids are pneumatized. Leftward nasal septal deviation. Left ostiomeatal unit is occluded by soft tissue. Right ostiomeatal unit is partially occluded. IMPRESSION: 1. Mild sinus disease. Reviewed, dictated and finalized at location A. IMPRESSION: 1. Mild sinus disease.
--- OUTSIDE RECORDS SUMMARY | 2024-08-23 17:05 | XMS_ITS | Clinical Summary ---
Author Organization [facility] Address [address] [place] [address] Care Team Providers Care Double End Tenoner Operator Name Role Phone Thiago Davies MD Unavailable [phone] Chandrika Kurtz NP Primary Care Provider [phone] Allergies Active Allergy Reactions Criticality Noted Date [...] total) by mouth daily. 08/27/19 23 Active potassium chloride CR (K-TAB) 10 MEQ Tab CR tablet Take 1 tablet by mouth once daily 90 tablet 3 08/05/19 24 Active rosuvastatin (CRESTOR) 40 MG tablet take 1 tablet by mouth nightly at bedtime 90 tablet 3 08/05/19 24 Active atenolol (TENORMIN) 25 MG tablet Take 1 tablet by mouth twice daily 180 tablet 3 09/17/19 24 Active furosemide (LASIX) 20 MG tablet Take 1 tablet by mouth once daily 90 tablet 1 07/24/19 25 Active potassium chloride CR 10 MEQ tablet Take 1 tablet (10 mEq total) by mouth daily. 90 tablet 2 06/27/19 21 022 Discontinued Active Problems Problem Noted Date Diagnosed Date Chest pain 08/10/2019 DIVYA on CPAP 02/09/2016 CAD (coronary artery disease) Essential hypertension Hyperlipidemia Encounters Date Type Department Care Team Description 06/28/2024 5:38 PM CDT - 06/28/2024 10:[address] 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 Not on file Last Filed Vital Signs Vital Sign Reading Time Taken Comments Blood Pressure 178/91 06/28/2024 10:23 PM CDT Pulse 56 06/28/2024 10:23 PM CDT Temperature 36.5 C (97.7 F) 06/28/2024 5:34 PM CDT Respiratory Rate 18 06/28/2024 10:23 PM CDT Oxygen Saturation 99% 06/28/2024 10:23 PM CDT Inhaled Oxygen Concentration - - Weight 95.3 kg (210 lb) 06/28/2024 5:34 PM CDT Height 172.7 cm (5' 8) 06/28/2024 5:34 PM CDT Body Mass Index 31.93 06/28/2024 5:34 PM CDT Plan of Treatment Upcoming Encounters Date Type Department Care Team (Late st Contact Info) Description 09/08/2024 3:00 PM CDT Office Visit [facility], [address] [place] [address] Thiago Davies MD [facility]. [address] [place], [place] [id number] Health Maintenance Due Date Last Done Comments Colorectal Cancer Screening Colonoscopy (10 Years) 1965 Annual Physical 07/13/1970 Hepatitis C 07/13/1985 DTaP, Tdap and Td Vaccines (1 - Tdap) 07/13/1986 Hepatitis B Vaccines (1 of 3 - 19+ 3-dose series) 07/13/1986 Pneumococcal Vaccine: 50+ Years (1 of 2 - PCV) 07/13/1986 Zoster Vaccines (1 of 2) 07/13/2017 COVID-19 Vaccine (3 - season) 2023 06/06/2020, 05/16/2020 ASCVD LDL 05/07/2024 05/07/2023, 0209/2022, 10/03/2021, Additional history exists Meningococcal B Vaccine Aged Out No l onger eligible based on patient's age to complete this topic Meningococcal Vaccine Aged Out No miguel eliezer eligible based on patient's age to complete this topic RSV Immunizations Under 20 Months Aged Out No longer eligible based on patient's age to complete this topic Medical Devices Implanted Type Area Monotype Caster Device Identifier Shelf Expiration Date Model / Serial / Lot Wire Sut 18in Myowr2 7;.5 Knobel; Ccs-1 Mfil; Cnv - [id number] Implanted:Qty: 3 on 08/13/2019 by Scotty Chiang RNFA at [facility] Wire N/A: Sternum [employer] 12/09/2023 [id number] / / [id number] Description:STERNAL WIRES X 3 SANDEE BUTCHER ALSO HELPED WITH WIRES Suture Sternotomy Kit - [id number] Implanted:Qty: 5 on 08/13/2019 by Scotty Chiang RNFA at [facility] Wire N/A: Sternum ATakkle 12/09/2023 [id number] / / [id number] Description:STERNAL WIRES X 5 SANDEE ETIENNE ALSO HELPED WITH WIRES Procedures Procedure Name Priority Date/Time Associated Diagnosis Comments ECG 12-LEAD STAT 06/28/2024 8:36 PM CDT TROPONIN, QUANT STAT 06/28/2024 8:35 PM CDT XR CHEST PORTABLE STAT 06/28/2024 6:3 9 PM CDT TROPONIN, QUANT STAT 06/28/2024 5:26 PM CDT COMPREHENSIVE METABOLIC PANEL STAT 06/28/2024 5:26 PM CDT CBC W/DIFF AUTOMATED STAT 06/28/2024 5:26 PM CDT LIPID PANEL Routine 05/07/2023 4:34 PM STRUCTURAL STEEL ERECTION SUPERVISOR Coronary artery disease involving hydaburg coronary artery of hydaburg heart without angina pectoris from Last 3 Months or Most Recently Relevant to Health Maintenance Results * ECG 12 lead (06/28/2024 8:36 PM CDT) 06/28/2024 8:36 PM CDT Narrative [facility] - 06/28/2024 10:53 PM CDT [facility] [address] [place] [address] Test Date: 2024-06-28 Pat Name: VIDAL ZAYAS Department: 41 Room: EXAM22 Gender: Male Agricultural Systems Specialist: : 1965 Requested By: JENNIFER LEE Order Number: [id number] Reading MD: Sarai Ho Measurements Intervals [place] Rate: 57 P: 58 IA: 146 QRS: -16 QRSD: 141 T: 127 QT: 474 QTc: 464 Interpretive Statements SINUS BRADYCARDIA WITH OCCASIONAL SUPRAVENTRICULAR PREMATURE COMPLEXES Right Bundle Branch Block MINIMAL VOLTAGE CRITERIA FOR LVH, CONSIDER NORMAL VARIANT Compared to ECG 08/13/2019 04:59:38 Right Bundle Branch Block now present Procedure Note Sarai Ho MD - 06/28/2024 [facility] [address] [place] [address] Test Date: 2024-06-28 Pat Name: VIDAL ZAYAS Department: 41 Room: EXAM22 Gender: Male Agricultural Systems Specialist: : 1965 Requested By: JENNIFER LEE Order Number: [id number] Reading MD: Sarai Ho Measurements Intervals [place] Rate: 57 P: 58 IA: 146 QRS: -16 QRSD: 141 T: 127 QT: 474 QTc: 464 Interpretive Statements SINUS BRADYCARDIA WITH OCCASIONAL SUPRAVENTRICULAR PREMATURE COMPLEXES Right Bundle Branch Block MINIMAL VOLTAGE CRITERIA FOR LVH, CONSIDER NORMAL VARIANT Compared to ECG 08/13/2019 04:59:38 Right Bundle Branch Block now present us Jennifer SEVILLA ECG ORDERABLES Final Result [facility] * TROPONIN, QUANT (06/28/2024 8:35 PM CDT) Only the most recent of2 resultswithin the time period is included. TROPONIN I HIGH SENSITIVITY 15 <79 ng/L 06/28/2024 9:30 PM CDT [facility] Comment: HIGH DOSES OF BIOTIN, TROPONIN-SPECIFIC AUTOANTIBODIES, AND ANTIBODY THERAPY CONTAINING HAMA MAY INTERFERE WITH THIS TEST RESULT. CORRELATION TO CLINICAL HISTORY AND PRESENTATION RECOMMENDED. 06/28/2024 8:35 PM CDT us Jennifer SEVILLA LABORAT[facility] Final Result [facility] [address] [place] [address], [place] [phone] * XR CHEST PORTABLE (06/28/2024 6:39 PM CDT) Anatomical Region Laterality Modality Chest Radiographic Rocio ging 06/28/2024 7:29 PM CDT Impressions 06/28/2024 7:30 PM CDT IMPRESSION: No definite acute radiographic abnormalities identified in the chest. Ordered By: JENNIFER LEE Interpreted By: Julian Barker MD, 06/28/2024 7:29 PM Narrative 06/28/2024 7:30 PM CDT [facility] [address] [place], [place] [address] Examination: Chest radiograph Exam time: 06/28/2024 6:03 PM Clinical history: Left neck pain Comparison: 08/17/2019 Technique: One view of the chest obtained. Findings: Surgical changes of median sternotomy. Normal heart size. No consolidation, pleural effusions, or definite pneumothorax. Osseous structures reveal degenerative changes. Procedure Note Julian Barker MD - 06/28/2024 [facility] [address] [place], [place] [address] Examination: Chest radiograph Exam time: 06/28/2024 6:03 PM Clinical history: Left neck pain Comparison: 08/17/2019 Technique: One view of the chest obtained. Findings: Surgical changes of median sternotomy. Normal heart size. Noconsolidation, pleural effusions, or definite pneumothorax. Osseousstructures reveal degenerative changes. IMPRESSION: No definite acute radiographic abnormalities identified in the chest. Ordered By: JENNIFER LEE Interpreted By: Julian Barker MD, 06/28/2024 7:29 PM Jennifer Lee [facility] Final Result * (ABNORMAL) COMPREHENSIVE METABOLIC PANEL (06/28/2024 5:26 PM CDT) GLUCOSE 101(H) 70 - 99 MG/DL 06/28/2024 6:25 PM CDT [facility] BUN 12 7 - 18 MG/DL 06/28/2024 6:25 PM CDT [facility] CREATININE S/P/B 0.94 0.7 - 1.3 MG/DL 06/28/2024 6:25 PM CDT [facility] SODIUM S/P/B 138 136 - 145 MMOL/L 06/28/2024 6:25 PM CDT [facility] POTASSIUM S/P/B 3.8 3.5 - 5.1 MMOL/L 06/28/2024 6:25 PM CDT [facility] CHLORIDE S/P/B 108 97 - 115 MMOL/L 06/28/2024 6:25 PM CDT [facility] CO2 25.5 21 - 32 MMOL/L 06/28/2024 6:25 PM CDT [facility] CALCIUM S/P/B 8.9 8.5 - 10.1 MG/DL 06/28/2024 6:25 PM CDT [facility] BILIRUBIN TOTAL S/P/B 0.3 0.2 - 1.2 MG/DL 06/28/2024 6:25 PM CDT [facility] Comment: THIS ASSAY IS NOT RECOMMENDED FOR PATIENTS UNDERGOING TREATMENT WITH ELTROMBOPAG DUE TO THE POTENTIAL FOR FALSELY ELEVATED RESULTS. TOTAL PROTEIN S/P/B 7.8 6.4 - 8.2 G/DL 06/28/2024 6:25 PM CDT [facility] ALBUMIN S/P/B 3.6 3.4 - 5.0 G/DL 06/28/2024 6:25 PM CDT [facility] AST 12(L) 15 - 37 U/L 06/28/2024 6:25 PM T [facility] ALT 16 16 - 60 U/L 06/28/2024 6:25 PM T [facility] ALKALINE PHOSPHATASE S/P/B 80 50 - 136 U/L 06/28/2024 6:25 PM T [facility] ANION GAP 4.5 2 - 10 MMOL/L 06/28/2024 6:25 PM T [facility] BUN CREATININE RATIO 12.8 6 - 26 06/28/2024 6:25 PM T [facility] A/G RATIO 0.9(L) 1.0 - 2.0 RATIO 06/28/2024 6:25 PM T [facility] GFR ESTIMATE >90 >90 ML/MIN/1.7 3 M2 06/28/2024 6:25 PM T [facility] Comment: NOTE: eGFR is not calculated for patients <18 years of age or gender unknown. This is an estimated GFR calculation using the new CKD EPI creatinine equation without race and so does not require a correction factor for race. This estimated GFR should not be used for calculating drug doses. 06/28/2024 5:26 PM CDT Jennifer SEVILLA [facility] Final Result [facility] [address] [place] [address], [place] [phone] * (ABNORMAL) CBC W/DIFF AUTOMATED (06/28/2024 5:26 PM CDT) Pathologist [facility] WBC 7.38 4.5 - 11.0 x10'3/uL 06/28/2024 6:09 PM CDT [facility] RBC 4.44(L) 4.70 - 6.10 x10'6/uL 06/28/2024 6:09 PM CDT [facility] HGB 14.4 14.0 - 18.0 G/DL 06/28/2024 6:09 PM CDT [facility] HCT 41.1(L) 43.0 - 54.0 % 06/28/2024 6:09 PM CDT [facility] MCV 92.6 80.0 - 94.0 FL 06/28/2024 6:09 PM CDT [facility] MCH 32.4(H) 27.0 - 31.0 PG 06/28/2024 6:09 PM CDT [facility] MCHC 35.0 32.0 - 36.0 G/DL 06/28/2024 6:09 PM CDT [facility] RDW 14.4 11.5 - 14.5 % 06/28/2024 6:09 PM CDT [facility] PLT 220 130 - 400 x10'3/uL 06/28/2024 6:09 PM CDT [facility] MPV 10.4 9.3 - 12.2 FL 06/28/2024 6:09 PM CDT [facility] DIFFERENTIAL TYPE AUTOMATED DIFFERENTIAL 06/28/2024 6:09 PM CDT [facility] NEUTROPHILS % 73.8 % 06/28/2024 6:09 PM CDT [facility] LYMPHOCYTES % 14.1 % 06/28/2024 6:09 PM CDT [facility] MONOCYTES % 8.4 % 06/28/2024 6:09 PM CDT [facility] EOSINOPHILS 2.8 % 06/28/2024 6:09 PM CDT [facility] BASOPHILS 0.5 % 06/28/2024 6:09 PM CDT [facility] IMMATURE GRANS % 0.4 % 06/29/19 6:09 PM CDT [facility] ABS. NEUTROPHILS 5.44 1.80 - 7.70 x10'3/uL 06/28/2024 6:09 PM CDT [facility] ABS. LYMPHOCYTES 1.04 1.00 - 4.80 x10'3/uL 06/28/2024 6:09 PM CDT [facility] ABS. MONOCYTES 0.62 0.30 - 0.82 x10'3/uL 06/28/2024 6:09 PM CDT [facility] ABS. EOSINOPHILS 0.21 0.04 - 0.54 x10'3/uL 06/28/2024 6:09 PM CDT [facility] ABS. BASOPHILS 0.04 0.01 - 0.08 x10'3/uL 06/28/2024 6:09 PM T [facility] ABS. IMMATURE GRANULOCYTES 0.03 0.00 - 0.49 x10'3/uL 06/28/2024 6:09 PM CDT [facility] 06/28/2024 5:26 PM CDT Jennifer SEVILL[facility] Final Result [facility] [address] [place] [address], [place] [phone] * LIPID PANEL (05/07/2023 4:34 PM STRUCTURAL STEEL ERECTION SUPERVISOR) CHOLESTEROL 151 <200 MG/DL 05/07/2023 5:31 PM STRUCTURAL STEEL ERECTION SUPERVISOR [facility] TRIGLYCERIDES 78 <150 MG/DL 05/07/2023 5:31 PM STRUCTURAL STEEL ERECTION SUPERVISOR [facility] HDL 67 >40.0 MG/DL 05/07/2023 5:31 PM STRUCTURAL STEEL ERECTION SUPERVISOR [facility] LDL (CALCULATED) 68 <100 MG/DL 05/07/19 5:31 PM STRUCTURAL STEEL ERECTION SUPERVISOR [facility] NON HDL CHOLESTEROL 84 <130 MG/DL 05/07 5:31 PM STRUCTURAL STEEL ERECTION SUPERVISOR [facility] CHOL/HDL RATIO 2.3 0.0 - 4.5 05/07/2023 5:31 PM [facility] VLDL CALCULATION 16 5 - 55 MG/DL 05/07/2023 5:31 PM [facility] LIPID INTERPRETATION 05/07/2023 5:31 PM STRUCTURAL STEEL ERECTION SUPERVISOR [facility] Comment: [facility] CONCENSUS REPORT RECOMMENDATIONS: ADULT CHILD LOW RISK: CHOLESTEROL <200 <170 TRIGLYCERIDE <150 --- HDL >=60 --- LDL <100 <110 BORDERLINE: CHOLESTEROL 200-239 170-199 TRIGLYCERIDE 150-199 --- HDL 40-59 --- LDL 100-159 110-129 HIGH RISK: CHOLESTEROL >=240 >=200 TRIGLYCERIDE >=200 --- HDL <40 --- LDL >=160 >=130 05/07/2023 4:34 PM STRUCTURAL STEEL ERECTION SUPERVISOR Richardevin Perlita Olea WASTEWATER PROJECT ENGINEER LABORATORY Final Result [facility] [address] [place] [address], from Last 3 Months or Most Recently Relevant to Health Maintenance Insurance GREER Advance Directives * Full Code (Latest Code Status on File) Date Activated Date Inactivated Comments 08/10/2019 2:15 PM 08/17/2019 6:49 PM * Full Code Date Activated Date Inactivated Comments 08/10/2019 12:56 AM 08/10/2019 2:15 PM Care Teams Double End Tenoner Operator Relationship Specialty Start Date End Date Chandrika Kurtz NP [facility]. [address] [place] [address] PCP - General NURSE PRACTITIONER 08/09/19 Thiago Davies MD [facility]. [address] [place] [address] [place] Ekg/Ecg Technician CARDIOVASCULAR DISEASE 05/22/17
== END 2024-08-23 16:14 | disposition home or self-care (01) ==
PROVIDERS: PCP Family Medicine; Visit Provider Otolaryngology
DX: J32.9 Chronic sinusitis, unspecified (principal); J33.9 Nasal polyp, unspecified; D49.89 Neoplasm of unspecified behavior of other specified sites
CPT/HCPCS: 70486

== ENCOUNTER 2024-10-13 16:13 | Outpatient (CLI) | payer OTHER, SELFPAY ==
--- NOTE | 2024-10-13 16:18 | ECG_ITS ---
Test Date: 2024-10-13 16:25:30 Measurements Intervals [place] Rate: 60 P: 58 MI: 147 QRS: -40 QRSD: 134 T: 109 QT: 445 QTc: 447 Interpretive Statements SINUS RHYTHM LEFT AXIS DEVIATION RIGHT BUNDLE BRANCH BLOCK INFERIOR INFARCT, AGE INDETERMINATE ABNORMAL ECG No previous ECG available for comparison Electronically Signed On 10-13-2024 18:24:00 CDT by London Krueger D.O.
[2024-10-13 16:53] LABS: Anion Gap 5 mmol/L (4-12); Blood Urea Nitrogen 20 mg/dL (9-20); Calcium 9.5 mg/dL (8.4-10.2); Carbon Dioxide 26 mmol/L (22-30); Chloride 104 mmol/L (98-107); Estimated Glomerular Filt Rate > 60; Glucose 123 mg/dL (65-110); Potassium 4.1 mmol/L (3.4-5.0); Sodium 135 mmol/L (137-145)
== END 2024-10-13 16:14 | disposition home or self-care (01) ==
LOC: ANHCARD 16:14
PROVIDERS: PCP Family Medicine; Visit Provider Anesthesiology
DX: Z01.818 Encounter for other preprocedural examination (principal); R94.31 Abnormal electrocardiogram [ECG] [EKG]; E11.9 Type 2 diabetes mellitus without complications; E78.5 Hyperlipidemia, unspecified; I10 Essential (primary) hypertension
CPT/HCPCS: 36415; 80048; 93005

== ENCOUNTER 2024-10-19 06:17 | Day surgery (SDC) | payer OTHER, SELFPAY ==
[2024-09-06 08:30] VITALS: BMI 31.6
--- NOTE | 2024-10-15 09:24 | SUR.PREOP ---
CALLED PT TO CLARIFY HIS ACTIVITY TOLERANCE PER DR EDWARDS INSTRUCTIONS. PT STATES HE CAN CLIMB A FLIGHT OF STAIRS WITHOUT CP OR SOB ON EXERTION. 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 PT WAS NOT HAPPY ANSWERING THESE QUESTONS AND ABRUPTLY HUNG UP ON ME.
[2024-10-19] VITALS (7 sets, daily range): BP systolic 114–142; BP diastolic 67–76; PULSE 62–72; RESP 18–26; TEMP 36.6–36.9; O2SAT 95–100
--- OUTSIDE RECORDS SUMMARY | 2024-10-19 06:23 | XMS_ITS | Encounter Summary ---
Author Organization [facility] Address Counts include 234 beds at the [facility] [place] [address] Care Team Providers Care Case Manager Name Role Phone Thiago Davies MD Unavailable [phone] Chandrika Kurtz NP Primary Care Provider [phone] Danyel Slater MD Primary Care Provider Encounter Details Date Type Department Care Team (Late Contact Info) Description 08/05/2017 Abstract [facility], [facility] [address] [place] [address] Sharif Sorensen MA Social History Tobacco Use [...] 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 Not on file Not on file documented as of this encounter Plan of Treatment Upcoming Encounters Date Type Department Care Team (Late Contact Info) Description 09/20/2025 2:15 PM CDT [facility] [address] [place] [address] Rony Olea, BINGO MANAGER [facility] [address] [place] [address] documented as of this encounter Procedures Procedure Name Priority Date/Time Associated Diagnosis Comments CBC (OUTSIDE LAB) Routine 05/19/2019 COMPREHENSIVE METABOLIC PANEL Routine 05/19/2019 LIPID PANEL Routine 05/19/2019 HEMOGLOBIN, GLYCOSYLATED Routine 05/19/2019 CBC (OUTSIDE LAB) Routine 06/11/2017 LIPID PANEL Routine 06/11/2017 HEMOGLOBIN, GLYCOSYLATED Routine 06/11/2017 THYROID STIM HORMONE TSH Routine 06/11/2017 documented in this encounter Results * HEMOGLOBIN, GLYCOSYLATED (05/19/2019) Pathologist [facility] HGB A1C 8.6 05/19/2019 us Doc [facility] Final Result * LIPID PANEL (05/19/2019) Pathologist [facility] CHOLESTEROL 166 HDL 57 TRIGLYCERIDES 182 LDL (CALCULATED) 73 05/19/2019 us Doc [facility] Final Result * COMPREHENSIVE METABOLIC PANEL (05/19/2019) Pathologist [facility] SODIUM S/P/B 138 POTASSIUM S/P/B 4.1 CO2 [...] on filedocumented in this encounter Care Teams Case Manager Relationship Specialty Start Date End Date Chandrika Kurtz NP [address] [address] PCP - General NURSE PRACTITIONER 08/09/19 09/30/24 Danyel Slater MD [address] [facility] [address] [place] [address] PCP - General FAMILY PRACTICE 10/01/24 Thiago Davies MD [facility] [address] [place] [address] [place] [facility] CARDIOVASCULAR DISEASE 05/22/17 Jennifer Slater Referring Physician FAMILY PRACTICE 10/01/24 10/01/24 documented as of this encounter
--- OUTSIDE RECORDS SUMMARY | 2024-10-19 06:23 | XMS_ITS | Clinical Summary ---
Author Organization [facility] Address [address] [place] [address] Care Team Providers Care Sap Portal Consultant Name Role Phone Juliana Valdovinos MD Unavailable [phone] Danyel Slater MD Primary Care Provider Allergies Active Allergy Reactions Criticality Noted Date Comments Cephalexin Swelling 02/09/2016 Medications nitroglycerin (NITROSTAT) 0.[address] [...] times daily as needed. 03/28/19 23 Active tadalafil (CIALIS) 20 MG tablet Take 1 tablet (20 mg total) by mouth daily as needed. 06/01/19 23 Active pioglitazone (ACTOS) 30 MG tablet Take 1 tablet (30 mg total) by mouth daily. 08/27/19 23 Active citalopram (CELEXA) 20 MG tablet Take 1 tablet (20 mg total) by mouth daily. 07/24/19 25 Active fluticasone propionate (FLONASE) 50 MCG/ACT nasal spray 2 sprays by Each Nostril route daily. 06/26/19 25 Active aspirin EC 81 MG tablet Take 1 tablet (81 mg total) by mouth daily. 90 tablet 3 09/09/19 25 Active atenolol (TENORMIN) 25 MG tablet Take 1 tablet (25 mg total) by mouth 2 (two) times daily. 180 tablet 3 09/09/19 25 Active furosemide (LASIX) 20 MG tablet Take 1 tablet (20 mg total) by mouth daily. 90 tablet 3 09/09/19 25 Active lisinopril (PRINIVIL) 40 MG tablet Take 1 tablet (40 mg total) by mouth daily. 90 tablet 3 09/09/19 25 Active potassium chloride CR (K-TAB) 10 MEQ Tab CR tablet Take 1 tablet (10 mEq total) by mouth daily. 90 tablet 3 09/09/19 25 Active rosuvastatin (CRESTOR) 40 MG tablet Take 1 tablet (40 mg total) by mouth nightly at bedtime. at bedtime 90 tablet 3 09/09/19 25 Active potassium chloride CR 10 MEQ tablet Take 1 tablet (10 mEq total) by mouth daily. 90 tablet 2 06/27/19 21 022 Discontinued Active Problems Problem Noted Date Diagnosed Date Chest pain 08/10/2019 DIVYA on CPAP 02/09/2016 CAD (coronary artery disease) Essential hypertension Hyperlipidemia Encounters Date Type Department Care Team Description 09/24/2024 Results Follow-Up [place] [facility], [address] [address] Sylwia Georges RN USE ECHOCARDIOGRAM W CON, CT CHEST+ABD+PEL WO CON 09/22/2024 1:57 PM CDT - 09/22/2024 11:59 PM CDT Hospital Encounter [facility] [place] [address] Juliana Valdovinos MD Discharge Disposition: Home or Self Care (Routine Discharge) 09/22/2024 Travel 09/08/2024 3:39 PM CDT - 09/08/2024 11:59 PM CDT [facility] [place] [address] Juliana Valdovinos MD Discharge Disposition: Home or Self Care (Routine Discharge) 09/08/2024 3:27 PM CDT - 09/08/2024 3:38 PM CDT [facility] [address] Juliana Valdovinos MD Discharge Disposition: Home or Self Care (Routine Discharge) 09/08/2024 3:00 PM CDT Office Visit [place] [facility], [address] [address] Juliana Valdovinos MD Follow Up 09/08/2024 Results Follow-Up [facility] [place] [facility] [address] Sylwia Georges, RN LIPID PANEL 09/08/2024 [facility] [place] [address] Juliana Valdovinos MD 09/08/2024 Travel from Last 3 Months Immunizations Immunization [...] 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 Not on file Not on file Last Filed Vital Signs Vital Sign Reading Time Taken Comments Blood Pressure 128/84 09/08/2024 3:01 PM CDT Pulse 63 09/08/2024 3:01 PM CDT Temperature 36.5 C (97.7 F) 06/28/2024 5:34 PM CDT Respiratory Rate 18 06/28/2024 10:23 PM CDT Oxygen Saturation 96% 09/08/2024 3:01 PM CDT Inhaled Oxygen Concentration - - Weight 95.3 kg (210 lb) 09/08/2024 3:01 PM CDT Height 172.7 cm (5' 8) 09/08/2024 3:01 PM CDT Body Mass Index 31.93 09/08/2024 3:01 PM CDT Plan of Treatment Upcoming Encounters Date Type Department Care Team (Late st Contact Info) Description 09/20/2025 2:15 PM CDT Office Visit [place] [facility] [facility], [facility] [address] [place], [place] [id number] Rony Olea NP [facility] [address] [place] [address] Health Maintenance Due Date Last Done Comments Colorectal Cancer Screening Colonoscopy (10 Years) 1965 Annual Physical 07/13/1970 Hepatitis C 07/13/1985 DTaP, Tdap and Td Vaccines ( 1 - Tdap) 07/13/1986 Hepatitis B Vaccines (1 of 3 - 19+ 3-dose series) 07/13/1986 Pneumococcal Vaccine: 50+ Years (1 of 2 - PCV) 07/13/1986 Zoster Vaccines (1 of 2) 07/13/2017 COVID-19 Vaccine (2023-2 5 season) 2023 06/06/2020, 05/16/2020 Meningococcal B Vaccine Aged Out No l onger eligible based on patient's age to complete this topic Meningococcal Vaccine Aged Out No miguel eliezer eligible based on patient's age to complete this topic RSV Immunizations Under 20 Months Aged Out No longer eligible b ased on patient's age to complete this topic Medical Devices Implanted Type Area Scrap Hoist Operator Device Identifier Shelf Expiration Date Model / Serial / Lot Wire Sut 18in Myowr2 7;.5 [place]; Ccs-1 Mfil; Cnv - [id number] Implanted:Qty: 3 on 08/13/2019 by Scotty Chiang RNFA at [facility] Wire N/A: Sternum A[employer]E [employer] 12/09/2023 [id number] / / [id number] Description:STERNAL WIRES X 3 SANDEE BUTCHER ALSO HELPED WITH WIRES Suture Sternotomy Kit - [id number] Implanted:Qty: 5 on 08/13/2019 by Scotty Chiang RNFA at [facility] Wire N/A: Sternum A[employer]E [employer] 12/09/2023 [id number] / / [id number] Description:STERNAL WIRES X 5 SANDEE ETIENNE ALSO HELPED WITH WIRES Procedures Procedure Name Priority Date/Time Associated Diagnosis Comments USE ECHOCARDIOGRAM W CON Routine 09/22/2024 4:51 PM CDT Coronary artery disease involving [place] coronary artery of [place] heart without angina pectoris CT CHEST+ABD+PEL WO CON Routine 09/23/19 25 2:14 PM CDT Hernia of anterior abdominal wall LIPID PANEL Routine 09/08/2024 3:33 PM CDT Hyperlipidemia, mixed from Last 3 Months Results * USE ECHOCARDIOGRAM W CON (09/22/2024 4:51 PM CDT) Anatomical Region Laterality Modality NA Echocardiogram 09/22/2024 3:42 PM CDT Narrative 09/23/2024 5:14 PM CDT Echocardiography Report Pat.Name: TRAM VIDAL MURIEL Pat.ID: [id number] St.Date: 09/22/2024 : [id number] ARUNA Grullon EWDPROV EWDPROV Exam Time: 3:42:00 PM Study Type:ECHO WITH CARDIAC DOPPLER COMP Height: 68 in Weight: 210 lb BSA: 2.09 m2 Age: 5 1965,59Y Sex: M BP: 173/78 HR: 57 bpm Sonogrphr: Alexandra Sharp Pat. Stat.:Outpatient Reason for Study:Chest pain, S/P CABG Procedures: 2D, M-mode, Doppler, Color Flow, Definity was used to enhance endocardial definition. The study quality is technically difficult. Race: W ++++++++++++++++++++++++++++++++++++ SUMMARY: ++++++++++++++++++++++++++++++++++++ The left ventricular size is normal. Estimated left ventricular ejection fraction is 50-55%. Moderate concentric left ventricular hypertrophy. Left ventricular diastolic function is abnormal. Wall motion appears normal in all segments. The right ventricular size is normal. Right ventricular systolic function is normal. Right ventricular systolic pressure is 50-60 mmHg suggestive of moderate pulmonary hypertension. ++++++++++++++++++++++++++++++++++++ FINDINGS: ++++++++++++++++++++++++++++++++++++ LV: The left ventricular size is normal. Estimated left ventricular ejection fraction is 50-55%. Moderate concentric left ventricular hypertrophy. Left ventricular diastolic function is abnormal. WM: Wall motion appears normal in all segments. RV: The right ventricular size is normal. Right ventricular systolic function is normal. IVS: No evidence of ventricular septal defect. LA: The left atrial volume is mildly increased (34- 41ml/M2). RA: Right atrial size is normal. IAS: Atrial septum appears intact. BEATRICE: No evidence of pericardial effusion. AO: Normal aortic root. PA: Estimated right atrial pressure of 3 mmHg. SVn: Inferior vena cava shows >50% collapse with respiration consistent with normal right atrial pressure. AV: The aortic valve is trileaflet. No evidence of aortic valve stenosis. No evidence of aortic regurgitation. MV: Mild mitral regurgitation. No evidence of mitral valve stenosis. Calcified anterior and posterior mitral annulus. PV: Trace pulmonic regurgitation. No evidence of pulmonic valve stenosis. TV: A trace of tricuspid regurgitation. Right ventricular systolic pressure is 50-60 mmHg suggestive of moderate pulmonary hypertension. No evidence of tricuspid valve stenosis. ++++++++++++++++++++++++++++++++++++ MEASUREMENTS: ++++++++++++++++++++++++++++++++++++ DOPPLER LVOT LVOTpkPG 3 mmHg LVOTmnPG 2 mmHg LVOTpkVel 91.4 cm/s (70-110)+ LVOT SV 70 ml LVOT TVI 22.2 cm LVOT CO 66.7 ml/s AV Forward Flow AV TVI 36.2 cm AV pkPG 9 mmHg AV pkVel 152 cm/s (100-170)+ Area (TVI) 1.93 cm2 (3-5)* AV mnPG 5 mmHg Area (Juan R) 1.89 cm2 (3-5)* MV Forward Flow MV DeTm 190 msec MV pkE 121 cm/s (60-130) MV mnPG 1 mmHg MV pkA 32.8 cm/s MV pkPG 2 mmHg MV SV 75 ml MV E/A 3.7 MV Regurg Flow MV FlwInt 98.3 ml/s MV mnVel 478 cm/s MV TVI 238 cm MV pkPG 136 mmHg MV mnPG 100 mmHg MV pkVel 583 cm/s (60-130)* MV PISA MV ERO 0.17 cm2 MV Flw 3.08 cc/s MV RgVol 40 ml MV AliasVel 31.9 cm/s PV Forward Flow PV pkVel 90.5 cm/s (60-90)+* PV AC 157 msec PV pkPG 3 mmHg TV Regurg Flow TV pkPG 50 mmHg TV pkVel 353 cm/s (30-70)* TV Forward Flow TV pkE 39.4 cm/s Lat E' Lat e 8.16 cm/s Lat E/E' Lat E/e 14.8 Med E' Med e 7.29 cm/s Med E/E' Med E/e 16.6 Aortic Valve Aortic Valve Ar 0.92 Aortic Valve Ve 0.6 Mitral Valve MV RgFrac 53 % PV Antegrade Flow Acceleration Sl 407 cm/s2 Right Atrium Gomez's Disk 20 Right Ventricle Right Ventricle 8.87 cm/s 2D Left Ventricle LVIDd 4.7 cm (3.6-5.2)+ LV ESV 61 ml LVIDs 3.4 cm (2.3-3.9)+ LV ESV 59.5 ml LngAxd 9.05 cm LVESV BP 64.5 ml LngAxd 8.54 cm LV EF 59.6 % LV EDV 151 ml LV EF 52.5 % LV EDV 125 ml LV EF BP 54.3 % LVEDV BP 141 ml LV SV 90 ml LngAxs 7.3 cm LV SV 65.6 ml LngAxs 6.33 cm LV SV BP 76.5 ml LVPW LVPWd 1.2 cm Ventricular Septum IVSd 1.5 cm Left Atrium LA a-p 5.1 cm (2.8-3.4)* LA VOLBP 69.8 ml Aorta Ao Rtd 3.2 cm (zsc 0.8) LVOT LVOT 2 cm LVOTArea 3.14 cm2 Mitral Valve MV issac 2.3 cm (2.1-2.7) Ratios IVS LA Biplane LAVol I BP 33.4 ml/m2 Right Atrium [place] 30 mm RA Single Plane Right Atrium MO 9.57 mm Right Atrium Sy 31.1 ml Right Atrium Sy 53.6 mm Right Atrium Sy 14.9 ml/m2 Right Atrium Sy 14.2 cm2 Right Ventricle Right Ventricle 38 mm Right Ventricle 25 mm Major [place] 79 mm MMODE TA Tricuspid Annul 19.2 mm <Electronic Signature> 09/23/2024 05:14 PM Juliana Valdovinos M.D. Procedure Note Juliana Valdovinos MD - 09/23/2024 Echocardiography Report Pat.Name: VIDAL UGALDE Pat.ID: [id number] .Date: 09/22/2024 Anant.: [id number] ARUNA Grullon EWDPROV EWDPROV Exam Time: 3:42:00 PM Study Type:ECHO WITH CARDIAC DOPPLER COMP Height: 68 in Weight: 210 lb BSA: 2.09 m2 Age: 7 1965,59Y Sex: M BP: 173/78 HR: 57 bpm Sonogrphr: Aelxandra Sharp Pat. Stat.:Outpatient Reason for Study:Chest pain, S/P CABG Procedures: 2D, M-mode, Doppler, Color Flow, Definity was used to enhance endocardial definition. The study quality is technically difficult. Race: W ++++++++++++++++++++++++++++++++++++ SUMMARY: ++++++++++++++++++++++++++++++++++++ The left ventricular size is normal. Estimated left ventricular ejection fraction is 50-55%. Moderate concentric left ventricular hypertrophy. Left ventricular diastolic function is abnormal. Wall motion appears normal in all segments. The right ventricular size is normal. Right ventricular systolic function is normal. Right ventricular systolic pressure is 50-60 mmHg suggestive of moderate pulmonary hypertension. ++++++++++++++++++++++++++++++++++++ FINDINGS: ++++++++++++++++++++++++++++++++++++ LV: The left ventricular size is normal. Estimated left ventricular ejection fraction is 50-55%. Moderate concentric left ventricular hypertrophy. Left ventricular diastolic function is abnormal. WM: Wall motion appears normal in all segments. RV: The right ventricular size is normal. Right ventricular systolic function is normal. IVS: No evidence of ventricular septal defect. LA: The left atrial volume is mildly increased (34- 41ml/M2). RA: Right atrial size is normal. IAS: Atrial septum appears intact. BEATRICE: No evidence of pericardial effusion. AO: Normal aortic root. PA: Estimated right atrial pressure of 3 mmHg. SVn: Inferior vena cava shows >50% collapse with respiration consistent with normal right atrial pressure. AV: The aortic valve is trileaflet. No evidence of aortic valve stenosis. No evidence of aortic regurgitation. MV: Mild mitral regurgitation. No evidence of mitral valve stenosis. Calcified anterior and posterior mitral annulus. PV: Trace pulmonic regurgitation. No evidence of pulmonic valve stenosis. TV: A trace of tricuspid regurgitation. Right ventricular systolic pressure is 50-60 mmHg suggestive of moderate pulmonary hypertension. No evidence of tricuspid valve stenosis. ++++++++++++++++++++++++++++++++++++ MEASUREMENTS: ++++++++++++++++++++++++++++++++++++ DOPPLER LVOT LVOTpkPG 3 mmHg LVOTmnPG 2 mmHg LVOTpkVel 91.4 cm/s (70-110)+ LVOT SV 70 ml LVOT TVI 22.2 cm LVOT CO 66.7 ml/s AV Forward Flow AV TVI 36.2 cm AV pkPG 9 mmHg AV pkVel 152 cm/s (100-170)+ Area (TVI) 1.93 cm2 (3-5)* AV mnPG 5 mmHg Area (Juan R) 1.89 cm2 (3-5)* MV Forward Flow MV DeTm 190 msec MV pkE 121 cm/s (60-130) MV mnPG 1 mmHg MV pkA 32.8 cm/s MV pkPG 2 mmHg MV SV 75 ml MV E/A 3.7 MV Regurg Flow MV FlwInt 98.3 ml/s MV mnVel 478 cm/s MV TVI 238 cm MV pkPG 136 mmHg MV mnPG 100 mmHg MV pkVel 583 cm/s (60-130)* MV PISA MV ERO 0.17 cm2 MV Flw 3.08 cc/s MV RgVol 40 ml MV AliasVel 31.9 cm/s PV Forward Flow PV pkVel 90.5 cm/s (60-90)+* PV AC 157 msec PV pkPG 3 mmHg TV Regurg Flow TV pkPG 50 mmHg TV pkVel 353 cm/s (30-70)* TV Forward Flow TV pkE 39.4 cm/s Lat E' Lat e 8.16 cm/s Lat E/E' Lat E/e 14.8 Med E' Med e 7.29 cm/s Med E/E' Med E/e 16.6 Aortic Valve Aortic Valve Ar 0.92 Aortic Valve Ve 0.6 Mitral Valve MV RgFrac 53 % PV Antegrade Flow Acceleration Sl 407 cm/s2 Right Atrium Gomez's Disk 20 Right Ventricle Right Ventricle 8.87 cm/s 2D Left Ventricle LVIDd 4.7 cm (3.6-5.2)+ LV ESV 61 ml LVIDs 3.4 cm (2.3-3.9)+ LV ESV 59.5 ml LngAxd 9.05 cm LVESV BP 64.5 ml LngAxd 8.54 cm LV EF 59.6 % LV EDV 151 ml LV EF 52.5 % LV EDV 125 ml LV EF BP 54.3 % LVEDV BP 141 ml LV SV 90 ml LngAxs 7.3 cm LV SV 65.6 ml LngAxs 6.33 cm LV SV BP 76.5 ml LVPW LVPWd 1.2 cm Ventricular Septum IVSd 1.5 cm Left Atrium LA a-p 5.1 cm (2.8-3.4)* LA VOLBP 69.8 ml Aorta Ao Rtd 3.2 cm (zsc 0.8) LVOT LVOT 2 cm LVOTArea 3.14 cm2 Mitral Valve MV issac 2.3 cm (2.1-2.7) Ratios IVS LA Biplane LAVol I BP 33.4 ml/m2 Right Atrium [place] 30 mm RA Single Plane Right Atrium MO 9.57 mm Right Atrium Sy 31.1 ml Right Atrium Sy 53.6 mm Right Atrium Sy 14.9 ml/m2 Right Atrium Sy 14.2 cm2 Right Ventricle Right Ventricle 38 mm Right Ventricle 25 mm Major [place] 79 mm MMODE TA Tricuspid Annul 19.2 mm <Electronic Signature> 09/23/2024 05:14 PM Juliana Valdovinos M.D. Juliana Valdovinos MD ECHO Final Result * CT CHEST+ABD+PEL WO CON (09/22/2024 2:14 PM CDT) Anatomical Region Laterality Modality Chest, Abdomen, Pelvis Computed Tomography 09/30/2024 9:42 AM CDT Impressions 09/30/2024 9:55 AM CDT IMPRESSION: 1. Shallow epigastric midline wide mouth abdominal wall hernia containing a short focal loop of the mid transverse colon. No complication. 2. Small omental fat-containing umbilical hernia. 3. Sigmoid colon diverticulosis without diverticulitis. 4. Coronary artery disease and Sequela of prior CABG. 5. Very faint patchy groundglass densities right upper lobe probably infectious inflammatory. No specific follow-up indicated. 6. Other nonemergent, incidental, and potential chronic findings as discussed in the report body above. Ordered By: JULIANA VALDOVINOS Interpreted By: Juliana Harry MD, 09/30/2024 9:42 AM Narrative 09/30/2024 9:55 AM CDT [address] [address] Exam: CT Chest, Abdomen and Pelvis without contrast Exam Date/Time: 09/22/2024 2:06 PM Indication: 59 male. Abdominal wall hernia. . Cardiac disease. Diabetes Comparison: Chest x-ray 06/28/2024 Technique: Computed tomography of the chest, abdomen and pelvis performed without intravenous contrast. A dose lowering technique was used for this procedure, which may include, but is not limited to, dose reduction technique, automated exposure control, the use of iterative reconstruction, and ALARA (As Low As Reasonably Achievable) / Image Gently techniques. CT findings: CHEST Support tubes and lines: None. Base of neck/thyroid: Negative. MEDIASTINUM: Heart: Normal cardiac size. Coronary artery disease and Sequela of prior CABG. No pericardial effusion. Lymph nodes: No supraclavicular, axillary, internal mammary, mediastinal, or hilar adenopathy. Small calcified lymph nodes are suggestive of prior granuloma this exposure VASCULATURE Normal diameter of the thoracic aorta. No central pulmonary arterial enlargement. LUNGS AND PLEURA Lungs: Very faint patchy groundglass densities right upper lobe probably infectious inflammatory. No specific follow-up indicated. Small right upper lobe thin- walled parenchymal cyst. No concerning pulmonary nodule mass consolidation. Airways are clear. No bronchiectasis, airway wall thickening or mucous plugging. Pleura: No pleural effusion, thickening, or calcification. BONES/SOFT TISSUES Normal bone density. Changes of diffuse idiopathic skeletal hyperostosis. No concerning focal lesion. ABDOMEN Limited noncontrast soft tissue and visceral assessment. Liver and bile ducts: Unremarkable unenhanced liver. Normal size and contour. No focal noncontrast finding. No intra or extrahepatic biliary tree dilatation. Gallbladder: Unremarkable. No calcific cholelithiasis or inflammation. Pancreas: Parenchymal volume loss. Spleen: Unenhanced spleen is unremarkable. RETROPERITONEUM Adrenals: Normal. Kidneys: No urinary system stone seen in the kidneys, ureters or bladder. Symmetric normal size and contour of the kidneys. No focal noncontrast finding, collecting system obstruction or perinephric stress Lymph nodes: No lymphadenopathy in the abdomen or pelvis. BOWEL AND PERITONEUM Bowel: Normal in caliber and wall thickness. High riding cecum. Appendix not definitively seen. Sigmoid colon diverticulosis without diverticulitis. Focal short segment herniation of the mid transverse colonic loop into a shallow widemouthed midline epigastric abdominal wall hernia. No complication Free air or fluid: None. VASCULATURE Mild atherosclerosis. No abdominal aortic aneurysm. Prominent atherosclerosis of the internal iliac branches. PELVIS Prostate seminal vesicles within normal limits. Nondistended distended urinary bladder grossly unremarkable. BONES/SOFT TISSUES Epigastric midline widemouth abdominal wall shallow hernia, as discussed above containing a short focal loop of the mid transverse colon. No complication. Hernia neck measures 8.3 cm, 7.0 cm craniocaudal dimension and 1.8 cm depth. Small omental fat-containing umbilical hernia also noted. No other abdominal wall hernias. Normal bone density. Lumbar spine moderate multilevel degenerative spondylosis most pronounced at L5-S1. No concerning focal lytic or blastic lesion Procedure Note Juliana Harry MD - 09/30/[address] [address] Exam: CT Chest, Abdomen and Pelvis without contrast Exam Date/Time: 09/22/2024 2:06 PM Indication: 59 male. Abdominal wall hernia. . Cardiac disease.Diabetes Comparison: Chest x-ray 06/28/2024 Technique: Computed tomography of the chest, abdomen and pelvis performedwithout intravenous contrast. A dose lowering technique was used for thisprocedure, which may include, but is not limited to, dose reductiontechnique, automated exposure control, the use of iterativereconstruction, and ALARA (As Low As Reasonably Achievable) / Image Gentlytechniques. CT findings: CHEST Support tubes and lines: None. Base of neck/thyroid: Negative. MEDIASTINUM: Heart: Normal cardiac size. Coronary artery disease and Sequela of priorCABG. No pericardial effusion. Lymph nodes: No supraclavicular, axillary, internal mammary, mediastinal,or hilar adenopathy. Small calcified lymph nodes are suggestive of priorgranuloma this exposure VASCULATURE Normal diameter of the thoracic aorta. No central pulmonary arterialenlargement. LUNGS AND PLEURA Lungs: Very faint patchy groundglass densities right upper lobe probablyinfectious inflammatory. No specific follow-up indicated. Small rightupper lobe thin-walled parenchymal cyst. No concerning pulmonary nodulemass consolidation. Airways are clear. No bronchiectasis, airway wall thickening or mucousplugging. Pleura: No pleural effusion, thickening, or calcification. BONES/SOFT TISSUES Normal bone density. Changes of diffuse idiopathic skeletal hyperostosis.No concerning focal lesion. ABDOMEN Limited noncontrast soft tissue and visceral assessment. Liver and bile ducts: Unremarkable unenhanced liver. Normal size andcontour. No focal noncontrast finding. No intra or extrahepatic biliarytree dilatation. Gallbladder: Unremarkable. No calcific cholelithiasis or inflammation. Pancreas: Parenchymal volume loss. Spleen: Unenhanced spleen is unremarkable. RETROPERITONEUM Adrenals: Normal. Kidneys: No urinary system stone seen in the kidneys, ureters or bladder.Symmetric normal size and contour of the kidneys. No focal noncontrastfinding, collecting system obstruction or perinephric stress Lymph nodes: No lymphadenopathy in the abdomen or pelvis. BOWEL AND PERITONEUM Bowel: Normal in caliber and wall thickness. High riding cecum. Appendixnot definitively seen. Sigmoid colon diverticulosis withoutdiverticulitis. Focal short segment herniation of the mid transverse colonic loop into ashallow widemouthed midline epigastric abdominal wall hernia. Nocomplication Free air or fluid: None. VASCULATURE Mild atherosclerosis. No abdominal aortic aneurysm. Prominentatherosclerosis of the internal iliac branches. PELVIS Prostate seminal vesicles within normal limits. Nondistended distendedurinary bladder grossly unremarkable. BONES/SOFT TISSUES Epigastric midline widemouth abdominal wall shallow hernia, as discussedabove containing a short focal loop of the mid transverse colon. Nocomplication. Hernia neck measures 8.3 cm, 7.0 cm craniocaudal dimensionand 1.8 cm depth. Small omental fat-containing umbilical hernia also noted. No otherabdominal wall hernias. Normal bone density. Lumbar spine moderate multilevel degenerativespondylosis most pronounced at L5-S1. No concerning focal lytic or blasticlesion IMPRESSION: 1. Shallow epigastric midline wide mouth abdominal wall hernia containinga short focal loop of the mid transverse colon. No complication. 2. Small omental fat-containing umbilical hernia. 3. Sigmoid colon diverticulosis without diverticulitis. 4. Coronary artery disease and Sequela of prior CABG. 5. Very faint patchy groundglass densities right upper lobe probablyinfectious inflammatory. No specific follow-up indicated. 6. Other nonemergent, incidental, and potential chronic findings asdiscussed in the report body above. Ordered By: JULIANA VALDOVINOS Interpreted By: Juliana Harry MD, 09/30/2024 9:42 AM Juliana Valdovinos MD CT Final Result * (ABNORMAL) LIPID PANEL (09/08/2024 3:33 PM CDT) CHOLESTEROL 205(H) <200 MG/DL 09/08/2024 4:16 PM CDT [facility] TRIGLYCERIDES 76 <150 MG/DL 09/08/2024 4:16 PM CDT [facility] HDL 58 >40.0 MG/DL 09/08/2024 4:16 PM CDT [facility] LDL (CALCULATED) 132(H) <100 MG/DL 09/08/2024 4:16 PM CDT [facility] Comment:CALCULATED USING THE FRIEDEWALD EQUATION NON HDL CHOLESTEROL 147(H) <130 MG/DL 09/08/2024 4:16 PM CDT [facility] CHOL/HDL RATIO 3.5 0.0 - 4.5 09/08/2024 4:16 PM CDT [facility] VLDL CALCULATION 15 5 - 55 MG/DL 09/08/2024 4:16 PM CDT [facility] LIPID INTERPRETATION 09/08/2024 4:16 PM CDT [facility] Comment: [facility] CON[facility]ENS[facility] REPORT RECOMMENDATIONS: ADULT CHILD LOW RISK: CHOLESTEROL <200 <170 TRIGLYCERIDE <150 --- HDL >=60 --- LDL <100 <110 BORDERLINE: CHOLESTEROL 200-239 170-199 TRIGLYCERIDE 150-199 --- HDL 40-59 --- LDL 100-159 110-129 HIGH RISK: CHOLESTEROL >=240 >=200 TRIGLYCERIDE >=200 --- HDL <40 --- LDL >=160 >=130 09/08/2024 3:33 PM CDT us Juliana Valdovinos MD LABORATORY Final Result [facility] [address] [place] [address], [place] [phone] from Last 3 Months Insurance GREER Advance Directives * Full Code (Latest Code Status on File) Date Activated Date Inactivated Comments 08/10/2019 2:15 PM 08/17/2019 6:49 PM * Full Code Date Activated Date Inactivated Comments 08/10/2019 12:56 AM 08/10/2019 2:15 PM Care Teams Sap Portal Consultant Relationship Specialty Start Date End Date Danyel Slater MD [address] [facility] [address] [place] [address] PCP - General FAMILY PRACTICE 10/01/24 Juliana Valdovinos MD [facility] [address] [place] [address] [place] CARDIOVASCULAR DISEASE 05/22/17
[2024-10-19] MEDS: LACTATED RINGERS 1,000 ML 30 ML IV CONT ×2 (06:45→10:48)
[2024-10-19] MEDS: ACETAMINOPHEN 500 MG TABLET 1000 MG PO (06:50)
--- NOTE | 2024-10-19 07:01 | P.PNAN_ITS ---
Anes - Initial Pre Proc Eval Procedure: Operation Date: 10/19/24 07:30 Proposed Procedures p Image Guided Endoscopic Bilateral Maxillary Antrostomies - Quinton Duran MD s Image Guided Endoscopic Bilateral Total Ethmoidectomy - Quinton Duran MD s Endoscopic Assisted Septoplasty - Quinton Duran MD s Bilateral Inferior Turbinate with Outfracture - Quinton Duran MD Date/Time: 10/19/24 07:01 Surgeon: Quinton Duran MD Pre Op Diagnosis: Chronic Serous Otitis Media, Nasal Polyps Patient Data Age: 59 Gender: M Height: 1.73 m Weight: 92.75 kg Last Vital Signs Temp 36.9 C 10/19/24 06:38 Pulse 64 10/19/24 06:38 Resp 18 10/19/24 06:38 BP 114/74 10/19/24 06:38 Pulse Ox 98 10/19/24 06:38 O2 Del Method Room Air 10/19/24 06:38 Allergies Allergy/AdvReac Type Severity Reaction Status Date / Time ciprofloxacin Allergy Unknown unknown Verified 10/19/24 06:36 Home Medications ?Medication ?Instructions ?Recorded ?Confirmed ?Type aspirin 81 mg tablet,delayed 81 mg PO DAILY 01/18/19 10/19/24 History release furosemide 20 mg tablet 20 mg PO QAM 01/18/19 10/19/24 History potassium chloride 10 mEq 10 meq PO DAILY 12/04/20 10/19/24 History tablet,extended release arginine oxoglurate 350 mg 350 mg PO DAILY 03/22/21 10/19/24 History tablet,extended release (L-Arginine (alpha-ketoglutarate)) fiber 1 tablet PO DAILY 03/22/21 10/19/24 History multivitamin 1 tablet PO DAILY 03/22/21 10/19/24 History omega-3 fatty acids-vitamin E 1 cap PO DAILY 03/22/21 10/19/24 History 1,000 mg capsule rosuvastatin 40 mg tablet 40 mg PO DAILY 01/01/22 10/19/24 History atenolol 25 mg tablet 50 mg PO DAILY 03/28/22 10/19/24 History allopurinol 300 mg tablet 300 mg PO DAILY #90 tabs 12/09/23 10/19/24 Rx citalopram 20 mg tablet (Celexa) 20 mg PO DAILY #90 tabs 12/09/23 10/19/24 Rx glipizide 5 mg tablet 5 mg PO DAILY #90 tabs 12/09/23 10/19/24 Rx lisinopril 40 mg tablet 40 mg PO DAILY #90 tabs 12/09/23 10/19/24 Rx metformin 500 mg tablet 500 mg PO BID #180 tabs 12/09/23 10/19/24 Rx pioglitazone 30 mg tablet (Actos) 30 mg PO DAILY #90 tabs 12/09/23 10/19/24 Rx fluticasone propionate 50 2 spray intranasal DAILY #16 grams 06/08/24 10/19/24 Rx mcg/actuation nasal spray,suspension (Flonase Allergy Relief) betamethasone valerate 0.1 % 1 applic topical BID #45 grams 06/14/24 10/19/24 Rx topical cream methocarbamol 500 mg tablet 500 mg PO TID PRN muscle spasm #30 07/19/24 10/19/24 Rx tabs tadalafil 20 mg tablet (Cialis) 20 mg PO DAILY PRN Erectile 07/20/24 10/19/24 Rx Dysfunction #30 tabs budesonide 0.25 mg/2 mL suspension 0.25 mg (2 mL) irrigation BID #120 10/19/24 Rx for nebulization mL cefuroxime axetil 250 mg tablet 250 mg PO BID #14 tabs 10/19/24 Rx prednisone 10 mg tablet 10 mg PO DAILY #7 tabs 10/19/24 Rx fluticasone propionate 93 2 spray intranasal Q12H #16 mL 10/21/24 Rx mcg/actuation breath activated aerosol (Xhance) Laboratory Tests 10/19/24 06:43 POC Capillary Glucose 106 H mg/dl (65-105) Patient hx anesthesia problems: none Family hx anesthesia problems: none Results Review: All pre-operative results and documents have been reviewed as part of the pre- operative evaluation. [facility] Past Medical History Medical History Cervical radiculopathy at C6 History of back strain Carpal tunnel syndrome on left Hx of myocardial infarction (~2019) Erectile dysfunction Mixed hyperlipidemia Smoker Obesity Arthritis Hypertension DIVYA (obstructive sleep apnea) Coronary artery disease due to lipid rich plaque Type 2 diabetes mellitus with other circulatory complications Gout due to renal impairment Surgical History Surgical History History of carpal tunnel surgery of left wrist History of heart bypass surgery (~2019) H/O heart artery stent (~2019) Family History Family History Father Family history of diabetes mellitus in first degree relative Mother Family history of heart disease in male family member before age 55 Other Depression Diabetes mellitus Family history of allergic disorder Family history of cardiovascular disease Family history of osteoarthritis Heart disease High cholesterol Hypertension Social History Social History Smoking packs per day: 0.5 Smoking cigarettes per day: 10.0 Years smoked: 30 Smoking pack-years: 15.00 Smoking status: Current every day smoker Tobacco type: cigarettes Second hand tobacco smoke exposure: Yes Smoking end date: 08/08/18 Alcohol intake: current Drinks per week: 4 Substance use: never Substance use type: does not use Living arrangements: with family Occupation/Education: unemployed Additional occupation/education comments: self-employed Gender identity (if verbalized by the patient): Male Spiritual care concerns: No Agree to blood products: Yes Anes - Eval Final PreProcedure Day of Procedure 10/19/24 07:01 Patient weight: obese Results Review: All pre-operative results and documents have been reviewed as part of the pre-o perative evaluation. Informed Consent: The patient's anesthetic plan and its attendant risks and benefits were discussed with the patient/family/POA. Questions were solicited and answers provided to the satisfaction of the patient/family/POA.
--- NOTE | 2024-10-19 07:02 | P.PNAN_ITS ---
Anes - Initial Pre Proc Eval Procedure: Operation Date: 10/19/24 07:30 Proposed Procedures p Image Guided Endoscopic Bilateral Maxillary Antrostomies - Quinton Duran MD s Image Guided Endoscopic Bilateral Total Ethmoidectomy - Quinton Duran MD s Endoscopic Assisted Septoplasty - Quinton Duran MD s Bilateral Inferior Turbinate with Outfracture - Quinton Duran MD Date/Time: 10/19/24 07:02 Surgeon: Quinton Duran MD Pre Op Diagnosis: Chronic Serous Otitis Media, Nasal Polyps Patient Data Age: 59 Gender: M Height: 1.73 m Weight: 92.75 kg Last Vital Signs Temp 36.9 C 10/19/24 06:38 Pulse 64 10/19/24 06:38 Resp 18 10/19/24 06:38 BP 114/74 10/19/24 06:38 Pulse Ox 98 10/19/24 06:38 O2 Del Method Room Air 10/19/24 06:38 Allergies Allergy/AdvReac Type Severity Reaction Status Date / Time ciprofloxacin Allergy Unknown unknown Verified 10/19/24 06:36 Home Medications ?Medication ?Instructions ?Recorded ?Confirmed ?Type aspirin 81 mg tablet,delayed 81 mg PO DAILY 01/18/19 10/19/24 History release furosemide 20 mg tablet 20 mg PO QAM 01/18/19 10/19/24 History potassium chloride 10 mEq 10 meq PO DAILY 12/04/20 10/19/24 History tablet,extended release arginine oxoglurate 350 mg 350 mg PO DAILY 03/22/21 10/19/24 History tablet,extended release (L-Arginine (alpha-ketoglutarate)) fiber 1 tablet PO DAILY 03/22/21 10/19/24 History multivitamin 1 tablet PO DAILY 03/22/21 10/19/24 History omega-3 fatty acids-vitamin E 1 cap PO DAILY 03/22/21 10/19/24 History 1,000 mg capsule rosuvastatin 40 mg tablet 40 mg PO DAILY 01/01/22 10/19/24 History atenolol 25 mg tablet 50 mg PO DAILY 03/28/22 10/19/24 History allopurinol 300 mg tablet 300 mg PO DAILY #90 tabs 12/09/23 10/19/24 Rx citalopram 20 mg tablet (Celexa) 20 mg PO DAILY #90 tabs 12/09/23 10/19/24 Rx glipizide 5 mg tablet 5 mg PO DAILY #90 tabs 12/09/23 10/19/24 Rx lisinopril 40 mg tablet 40 mg PO DAILY #90 tabs 12/09/23 10/19/24 Rx metformin 500 mg tablet 500 mg PO BID #180 tabs 12/09/23 10/19/24 Rx pioglitazone 30 mg tablet (Actos) 30 mg PO DAILY #90 tabs 12/09/23 10/19/24 Rx fluticasone propionate 50 2 spray intranasal DAILY #16 grams 06/08/24 10/19/24 Rx mcg/actuation nasal spray,suspension (Flonase Allergy Relief) betamethasone valerate 0.1 % 1 applic topical BID #45 grams 06/14/24 10/19/24 Rx topical cream methocarbamol 500 mg tablet 500 mg PO TID PRN muscle spasm #30 07/19/24 10/19/24 Rx tabs tadalafil 20 mg tablet (Cialis) 20 mg PO DAILY PRN Erectile 07/20/24 10/19/24 Rx Dysfunction #30 tabs Laboratory Tests 10/19/24 06:43 POC Capillary Glucose 106 H mg/dl (65-105) Patient hx anesthesia problems: none Family hx anesthesia problems: none Results Review: All pre-operative results and documents have been reviewed as part of the pre- operative evaluation. 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 renal impairment Surgical History Surgical History History of carpal tunnel surgery of left wrist History of heart bypass surgery (~2019) H/O heart artery stent (~2019) Family History Family History Father Family history of diabetes mellitus in first degree relative Mother Family history of heart disease in male family member before age 55 Other Depression Diabetes mellitus Family history of allergic disorder Family history of cardiovascular disease Family history of osteoarthritis Heart disease High cholesterol Hypertension Social History Social History Smoking packs per day: 0.5 Smoking cigarettes per day: 10.0 Years smoked: 30 Smoking pack-years: 15.00 Smoking status: Current every day smoker Tobacco type: cigarettes Second hand tobacco smoke exposure: Yes Smoking end date: 08/08/18 Alcohol intake: current Drinks per week: 4 Substance use: never Substance use type: does not use Living arrangements: with family Occupation/Education: unemployed Additional occupation/education comments: self-employed Gender identity (if verbalized by the patient): Male Spiritual care concerns: No Agree to blood products: Yes Anes - Eval Final PreProcedure Day of Procedure 10/19/24 07:02 Patient weight: obese Heart: regular rate and rhythm Lungs: clear to auscultation Airway: Mallampati scale class II Neurological: alert and oriented Last oral intake: >/= 8 hours ASA classification: III Emergent: no Anesthetic plan: proceed Anesthesia type and monitoring: general Results Review: All pre-operative results and documents have been reviewed as part of the pre- operative evaluation. Informed Consent: The patient's anesthetic plan and its attendant risks and benefits were discussed with the patient/family/POA. Questions were solicited and answers provided to the satisfaction of the patient/family/POA.
--- NOTE | 2024-10-19 07:43 | PM.IMHP ---
H&P: HPI History of Present Illness Date/Time: 10/19/24 07:43 Chief Complaint: Nasal obstruction nasal congestion septal deviation turbinate hypertrophy acute on chronic sinusitis patient presents for planned surgical procedure. Risks were again discussed in great detail. 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 renal impairment Surgical History Surgical History History of carpal tunnel surgery of left wrist History of heart bypass surgery (~2019) H/O heart artery stent (~2019) Family History Family History Father Family history of diabetes mellitus in first degree relative Mother Family history of heart disease in male family member before age 55 Other Depression Diabetes mellitus Family history of allergic disorder Family history of cardiovascular disease Family history of osteoarthritis Heart disease High cholesterol Hypertension Social History Social History Smoking packs per day: 0.5 Smoking cigarettes per day: 10.0 Years smoked: 30 Smoking pack-years: 15.00 Smoking status: Current every day smoker Tobacco type: cigarettes Second hand tobacco smoke exposure: Yes Smoking end date: 08/08/18 Alcohol intake: current Drinks per week: 4 Substance use: never Substance use type: does not use Living arrangements: with family Occupation/Education: unemployed Additional occupation/education comments: self-employed Gender identity (if verbalized by the patient): Male Spiritual care concerns: No Agree to blood products: Yes Meds Home Medications and Allergies Home Medications ?Medication ?Instructions ?Recorded ?Confirmed ?Type aspirin 81 mg tablet,delayed 81 mg PO DAILY 01/18/19 10/19/24 History release furosemide 20 mg tablet 20 mg PO QAM 01/18/19 10/19/24 History potassium chloride 10 mEq 10 meq PO DAILY 12/04/20 10/19/24 History tablet,extended release arginine oxoglurate 350 mg 350 mg PO DAILY 03/22/21 10/19/24 History tablet,extended release (L-Arginine (alpha-ketoglutarate)) fiber 1 tablet PO DAILY 03/22/21 10/19/24 History multivitamin 1 tablet PO DAILY 03/22/21 10/19/24 History omega-3 fatty acids-vitamin E 1 cap PO DAILY 03/22/21 10/19/24 History 1,000 mg capsule rosuvastatin 40 mg tablet 40 mg PO DAILY 01/01/22 10/19/24 History atenolol 25 mg tablet 50 mg PO DAILY 03/28/22 10/19/24 History allopurinol 300 mg tablet 300 mg PO DAILY #90 tabs 12/09/23 10/19/24 Rx citalopram 20 mg tablet (Celexa) 20 mg PO DAILY #90 tabs 12/09/23 10/19/24 Rx glipizide 5 mg tablet 5 mg PO DAILY #90 tabs 12/09/23 10/19/24 Rx lisinopril 40 mg tablet 40 mg PO DAILY #90 tabs 12/09/23 10/19/24 Rx metformin 500 mg tablet 500 mg PO BID #180 tabs 12/09/23 10/19/24 Rx pioglitazone 30 mg tablet (Actos) 30 mg PO DAILY #90 tabs 12/09/23 10/19/24 Rx fluticasone propionate 50 2 spray intranasal DAILY #16 grams 06/08/24 10/19/24 Rx mcg/actuation nasal spray,suspension (Flonase Allergy Relief) betamethasone valerate 0.1 % 1 applic topical BID #45 grams 06/14/24 10/19/24 Rx topical cream methocarbamol 500 mg tablet 500 mg PO TID PRN muscle spasm #30 07/19/24 10/19/24 Rx tabs tadalafil 20 mg tablet (Cialis) 20 mg PO DAILY PRN Erectile 07/20/24 10/19/24 Rx Dysfunction #30 tabs Allergies Allergy/AdvReac Type Severity Reaction Status Date / Time ciprofloxacin Allergy Unknown unknown Verified 10/19/24 06:36 Vital Signs Vital Signs - 24 hr 10/19/24 06:38 Temperature 36.9 C Pulse Rate 64 Respiratory Rate 18 Blood Pressure 114/74 Pulse Oximetry 98 Oxygen Delivery Room Air Exam Narrative: Septal deviation turbinate hypertrophy chronic appearing sinuses Assessment and Plan Assessment and plan (1) Chronic sinusitis: Code(s): J32.9 - Chronic sinusitis, unspecified Status: Acute Assessment and Plan: Plan OR bilateral image guided maxillary antrostomies total ethmoidectomies as well as septoplasty and turbinate reduction. Risks were again discussed in great detail see previous documentation for risks discussed. Basically CSF leak brain brain damage change in cosmetic appearance septal perforation CS total blindness change in vision failure to resolve symptoms need for the procedures time-out for time off school and high risk medication use damage to any structure of the clavicles myself damage to any structure induction remains anesthesia. (2) Nasal septal deviation: Code(s): J34.2 - Deviated nasal septum Status: Acute (3) Hypertrophy of both inferior nasal turbinates: Code(s): J34.3 - Hypertrophy of nasal turbinates Status: Acute
--- NOTE | 2024-10-19 07:44 | WPDHPUPDATE1 ---
History and Physical Update Update Date/Time: 10/19/24 07:44 History and Physical has been reviewed, including an updated exam of the patient. There are NO changes in the patient's condition. Risks, benefits, and alternatives have been discussed and questions answered. Patient agrees to proceed with procedure.
[2024-10-19] MEDS: ceFAZolin 2 GM in SODIUM CHLORIDE 0.9% IV 50 ML 100 ML IVPB (07:52)
[2024-10-19] MEDS: LIDO 1%/EPINEPHRINE 1:100,000 20 ML VIAL 6 ML INFILTRATE (08:08)
[2024-10-19] MEDS: OXYMETAZOLINE HCL 0.05% NAS 15 ML BTL (*BKC) 1 SPRAY NASAL (09:16)
--- NOTE | 2024-10-19 09:23 | SUR.OPER ---
update given to Clint
[2024-10-19] MEDS: MUPIROCIN 2% OINT 22 GM TUBE 1 APPLIC EACH NARE (10:33)
--- NOTE | 2024-10-19 11:07 | W.PM.PROC2 ---
Procedure Note - Detailed Date of Procedure 10/19/24 Pre-op Diagnosis nasal polyps, chronic sinusitis, septal deviation, turbinate hypertrophy, nasal obstruction, nasal congestion Post-op Diagnosis Same Procedure Performed 1. Endoscopic assisted septoplasty 2. Inferior turbinate reduction bilaterally with outfracture 3. Bilateral image guided endoscopic maxillary antrostomies 4. Bilateral image guided total ethmoidectomies endoscopic Surgeon Quinton Duran MD Anesthesia General Indications see above Findings patient had diffuse polyposis throughout the aforementioned sinuses. The sinuses appeared much much worse than they did on the preoperative CT. Septal deviation S shaped right greater than left. Easily corrected no complications no perforations total about 35 cc of blood loss. Description of Procedure Patient identified consent verified in the preoperative holding area. Patient brought to the operating room time-out performed. General anesthesia was induced and endotracheal tube was secured the patient's patient's airway. Image guidance initiated confirmed. Patient prepped draped positioned 2nd time-out performed. Again image guidance is already set up. total 10 cc 1% lidocaine 1 100,000 parts epinephrine checked bilateral nasal septum inferior turbinates [place] incision made left-sided 0 degree scope utilized left nasal septal flap elevated no tears osteotome utilized outline the septum the be removed caudal used to elevate the septum after the free of sorry after the osteotome had cracked the anterior portion right nasal septal flap elevated no tears deviated septum removed Ernesto forceps [place] Jacobo forceps and osteotome. Minimal bleeding septum washed out closed anteriorly with 3 interrupted 5 0 fast gut sutures. Turbinates damage anteriorly the 50 with a reduced the submucosal plane using microdebrider with turbinate blade a [place] 2 mm. They were then outfractured the [place] minimal bleeding good reduction. Bilateral maxillary antrostomies were performed with image guidance straight through cut double ball tip probe and backbiter as well as image guided quad cut microdebrider. No damage to septum no damage to orbit no damage to nasolacrimal ducts bilaterally. 30 degree scope was utilized to confirm the surgical os connected to the natural os bilaterally. Right total ethmoidectomy by so bilateral total ethmoidectomies performed with image guidance image guided microdebrider [place] straight through cut. Great care was ensured to not damage the skull base orbit or septum. Right side had really really polypoid almost like a mass this was sent for pathologic analysis. After the ethmoids were cleared there copiously irrigated sterile normal saline. Nova pack was placed. Moore splints placed sutured anteriorly with 3-0 mattress nylon suture. Great care was taken to the Moore splints were lateral middle turbinates. I performed all dictated portions of procedure no complication. Care the patient given Anesthesiology. Patient taken to PACU in good condition. No immediate complications. Estimated Blood Loss 35 Drains No Packing Yes ( Nova pack) Pathology Yes Complications No immediate complications Condition Stable Disposition PACU [facility] Billing Surgery - Charge Forward: Surgery Billing
--- NOTE | 2024-10-19 11:23 | SUR.PHASEI ---
PT AWAKE AND ALERT. DENIES PAIN. STATES NOSE IS BURNING A LITTLE BIT. OFFERED PAIN MEDICATION. PT REFUSED AT THIS TIME.
== END 2024-10-19 12:17 | disposition home or self-care (01) ==
PROVIDERS: PCP Family Medicine; Visit Provider Otolaryngology
PROC: (CPT 31256; principal; 2024-10-19 07:30)
PROC: (CPT 31256; 2024-10-19 07:30)
PROC: (CPT 30520; 2024-10-19 07:30)
PROC: (CPT 31256; 2024-10-19 07:30)
DX: J32.9 Chronic sinusitis, unspecified (principal); J34.3 Hypertrophy of nasal turbinates; J34.2 Deviated nasal septum; J34.89 Other specified disorders of nose and nasal sinuses; J33.8 Other polyp of sinus
CPT/HCPCS: 31256; 31255; 30520; 30140; 61782

== ENCOUNTER 2024-10-19 07:00 | Outpatient (NON) | payer OTHER, SELFPAY ==
--- NOTE | 2024-10-19 | S_PTH ---
PATIENT: ZARIA UGALDE LOC: [facility] #:[id number] AGE/SX: 59/M ROOM: RE10/19/[address]: Quinton Duran MD : 1965 BED: DIS: 10/20/2024 SPEC #: [id number] RECD: 10/20/24 08:20 STATUS: STEVEN ZAPATA #: [id number] MARISELA: 10/19/24 00:[address]: Quinton Duran DEPT: [facility] Surgical RECD BY: Misty Alonso ENTERED: 10/20/24 08:20 SP TYPE: Surgical OTHR DR: Danyel Slater MD Tissues: A - Mass Procedures: Hematoxylin and Eosin Stain Gross and Microscopic Level 3
--- OUTSIDE RECORDS SUMMARY | 2024-10-20 07:24 | XMS_ITS | Encounter Summary ---
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 Not on file Not on file documented as of this encounter Plan of Treatment Upcoming Encounters Date Type Department Care Team (Late Contact Info) Description 09/20/2025 2:15 PM CDT Office Visit [facility], [facility] [address] [place] [address] Rony Olea, CERTIFIED ACTIVITIES DIRECTOR [facility] [address] [place] [address] documented as of this encounter Procedures Procedure Name Priority Date/Time Associated Diagnosis Comments CBC (OUTSIDE LAB) Routine 05/19/2019 COMPREHENSIVE METABOLIC PANEL Routine 05/19/2019 LIPID PANEL Routine 05/19/2019 HEMOGLOBIN, GLYCOSYLATED Routine 05/19/2019 CBC (OUTSIDE LAB) Routine 06/11/2017 LIPID PANEL Routine 06/11/2017 HEMOGLOBIN, GLYCOSYLATED Routine 06/11/2017 THYROID STIM HORMONE TSH Routine 06/11/2017 documented in this encounter Results * HEMOGLOBIN, GLYCOSYLATED (05/19/2019) Pathologist [facility] [place] HGB A1C 8.6 05/19/2019 us Doc [facility] LABORATORY Final Result * LIPID PANEL (05/19/2019) Pathologist [facility] [place] CHOLESTEROL 166 HDL 57 TRIGLYCERIDES 182 LDL (CALCULATED) 73 05/19/2019 us Doc [facility]ORAT[facility] Final Result * COMPREHENSIVE METABOLIC PANEL (05/19/2019) Pathologist [facility] [place] SODIUM S/P/B 138 POTASSIUM S/P/B 4.1 CO2 [...] on filedocumented in this encounter Care Teams Division Traffic Superintendent Relationship Specialty Start Date End Date Chandrika Kurtz NP [address] [address] PCP - General NURSE PRACTITIONER 08/09/19 09/30/24 Danyel Slater MD [address] [facility] [address] [place] [address] PCP - General FAMILY PRACTICE 10/01/24 Thiago Davies MD [facility] [address] [place] [address] [employer] [employer] CARDIOVASCULAR DISEASE 05/22/17 Jennifer Slater Referring Physician FAMILY PRACTICE 10/01/24 10/01/24 documented as of this encounter
--- OUTSIDE RECORDS SUMMARY | 2024-10-20 07:24 | XMS_ITS | Clinical Summary ---
Author Organization [facility] Address [address] [place] [address] Care Team Providers Care Linseed Cake Trimmer Name Role Phone Juliana Valdovinos MD Unavailable [phone] Danyel Slater MD Primary Care Provider [...] Department Care Team Description 09/24/2024 Results Follow-Up [facility], [address] [address] Sylwia Georges RN USE ECHOCARDIOGRAM W CON, CT CHEST+ABD+PEL WO CON 09/22/2024 1:57 PM CDT - 09/22/2024 11:59 PM CDT Hospital Encounter [facility] [place] [address] Juliana Valdovinos MD Discharge Disposition: Home or Self Care (Routine Discharge) 09/22/2024 Travel 09/08/2024 3:39 PM CDT - 09/08/2024 11:59 PM CDT [facility] [place] [address] Juliana Valdovinos MD Discharge Disposition: Home or Self Care (Routine Discharge) 09/08/2024 3:27 PM CDT - 09/08/2024 3:38 PM CDT [facility] [place] [address] Juliana Valdovinos MD Discharge Disposition: Home or Self Care (Routine Discharge) 09/08/2024 3:00 PM CDT Office Visit 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, [facility] [address] [place], [place] [id number] Rony Olea NP Three [facility] [address] [place] [address] Health Maintenance Due Date Last Done Comments [...] this topic Medical Devices Implanted Type Area Irrigation Laborer Device Identifier Shelf Expiration Date Model / Serial / Lot Wire Sut 18in Myowr2 7;.5 [employer]; Ccs-1 Mfil; Cnv - [id number] Implanted:Qty: 3 on 08/13/2019 by Scotty Chiang RNFA at [facility] Wire N/A: Sternum A[employer]E [employer] 12/09/2023 [id number] / / [id number] Description:STERNAL WIRES X 3 SANDEE BUTCHER ALSO HELPED WITH WIRES Suture Sternotomy Kit - [id number] Implanted:Qty: 5 on 08/13/2019 by Scotty Chiang RNFA at [facility] Wire N/A: Sternum A[employer]E [employer] 12/09/2023 [id number] / / [id number] Description:STERNAL WIRES X 5 SANDEE ETIENNE ALSO HELPED WITH WIRES Procedures Procedure Name Priority Date/Time Associated Diagnosis Comments USE ECHOCARDIOGRAM W CON Routine 09/22/2024 4:51 PM CDT Coronary artery disease involving [place] coronary artery of [place] heart without angina pectoris CT CHEST+ABD+PEL WO [...] Echocardiography Report Pat.Name: TRAM VIDAL MURIEL Pat.ID: [id number] St.Date: 09/22/2024 : [id number] ARUNA Grullon EWDPROV EWDPROV Exam Time: 3:42:00 [...] I BP 33.4 ml/m2 Right Atrium Minor [place] 30 mm RA Single Plane Right Atrium MO 9.57 mm Right Atrium Sy 31.1 ml Right Atrium Sy 53.6 mm Right Atrium Sy 14.9 ml/m2 Right Atrium Sy 14.2 cm2 Right Ventricle Right Ventricle 38 mm Right Ventricle 25 mm Major [place] 79 mm MMODE TA Tricuspid Annul 19.2 mm <Electronic Signature> 09/23/2024 05:14 PM Juliana Valdovinos M.D. Procedure Note Juliana Valdovinos MD - 09/23/2024 Echocardiography Report Pat.Name: VIDAL UGALDE Pat.ID: [id number] .Date: 09/22/2024 Anant.: [id number] ARUNA Grullon EWDPROV EWDPROV Exam Time: 3:42:00 [...] I BP 33.4 ml/m2 Right Atrium Minor [place] 30 mm RA Single Plane Right Atrium MO 9.57 mm Right Atrium Sy 31.1 ml Right Atrium Sy 53.6 mm Right Atrium Sy 14.9 ml/m2 Right Atrium Sy 14.2 cm2 Right Ventricle Right Ventricle 38 mm Right Ventricle 25 mm Major [place] 79 mm MMODE TA Tricuspid Annul 19.2 [...] 9:42 AM Narrative 09/30/2024 9:55 AM CDT [address] [address] Exam: CT Chest, Abdomen and Pelvis without [...] Procedure Note Juliana Harry MD - 09/30/[address] [address] Exam: CT Chest, Abdomen and Pelvis without [...] 205(H) <200 MG/DL 09/08/2024 4:16 PM CDT [facility] TRIGLYCERIDES 76 <150 MG/DL 09/08/2024 4:16 PM CDT [facility] HDL 58 >40.0 MG/DL 09/08/2024 4:16 PM CDT [facility] LDL (CALCULATED) 132(H) <100 MG/DL 09/08/2024 4:16 PM CDT [facility] Comment:CALCULATED USING THE FRIEDEWALD EQUATION NON HDL CHOLESTEROL 147(H) <130 MG/DL 09/08/2024 4:16 PM CDT [facility] CHOL/HDL RATIO 3.5 0.0 - 4.5 09/08/2024 4:16 PM CDT [facility] VLDL CALCULATION 15 5 - 55 MG/DL 09/08/2024 4:16 PM CDT [facility] LIPID INTERPRETATION 09/08/2024 4:16 PM CDT [facility] Comment: NIH CONCENSUS REPORT RECOMMENDATIONS: ADULT CHILD LOW RISK: CHOLESTEROL <200 <170 TRIGLYCERIDE <150 --- HDL >=60 --- LDL <100 <110 BORDERLINE: CHOLESTEROL 200-239 170-199 TRIGLYCERIDE 150-199 --- HDL 40-59 --- LDL 100-159 110-129 HIGH RISK: CHOLESTEROL >=240 >=200 TRIGLYCERIDE >=200 --- HDL <40 --- LDL >=160 >=130 09/08/2024 3:33 PM CDT us Juliana Valdovinos MD LABORATORY Final Result [facility] [address] [place] [address], [place] [phone] from Last 3 Months Insurance GREER Advance Directives * Full Code (Latest Code Status on File) Date Activated Date Inactivated Comments 08/10/2019 2:15 PM 08/17/2019 6:49 PM * Full Code Date Activated Date Inactivated Comments 08/10/2019 12:56 AM 08/10/2019 2:15 PM Care Teams Linseed Cake Trimmer Relationship Specialty Start Date End Date Danyel Slater MD [address] [facility] [address] [place] [address] PCP - General FAMILY PRACTICE 10/01/24 Juliana Valdovinos MD [facility] [address] [place] [address] [place] Remote Sensing Specialist CARDIOVASCULAR DISEASE 05/22/17
== END 2024-10-20 07:21 | disposition home or self-care (01) ==
PROVIDERS: PCP Family Medicine; Visit Provider Otolaryngology
DX: J33.8 Other polyp of sinus (principal); J32.9 Chronic sinusitis, unspecified; J34.3 Hypertrophy of nasal turbinates
CPT/HCPCS: 88304

== ENCOUNTER 2024-11-09 14:32 | Outpatient (CLI) | payer OTHER, SELFPAY ==
--- OUTSIDE RECORDS SUMMARY | 2024-11-09 14:44 | XMS_ITS | Encounter Summary ---
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 documented as of this encounter Plan of Treatment Upcoming Encounters Date Type Department Care Team (Late Contact Info) Description 09/20/2025 2:15 PM CDT Office Visit [facility], [facility] [address] [place] [address] Rony Olea, FRAME CATCHER [facility] [address] [place] [address] documented as of this encounter Procedures Procedure Name Priority Date/Time Associated Diagnosis Comments CBC (OUTSIDE LAB) Routine 05/19/2019 COMPREHENSIVE METABOLIC PANEL Routine 05/19/2019 LIPID PANEL Routine 05/19/2019 HEMOGLOBIN, GLYCOSYLATED Routine 05/19/2019 CBC (OUTSIDE LAB) Routine 06/11/2017 LIPID PANEL Routine 06/11/2017 HEMOGLOBIN, GLYCOSYLATED Routine 06/11/2017 THYROID STIM HORMONE TSH Routine 06/11/2017 documented in this encounter Results * HEMOGLOBIN, GLYCOSYLATED (05/19/2019) Pathologist [facility] HGB A1C 8.6 05/19/2019 us Doc [facility] LABORATORY Final Result * LIPID PANEL (05/19/2019) Pathologist [facility] CHOLESTEROL 166 HDL 57 TRIGLYCERIDES 182 LDL (CALCULATED) 73 05/19/2019 us Doc [facility] LABORATORY Final Result * COMPREHENSIVE METABOLIC PANEL (05/19/2019) Pathologist [facility] SODIUM S/P/B 138 POTASSIUM S/P/B 4.1 CO2 [...] on filedocumented in this encounter Care Teams Wrapper Off Relationship Specialty Start Date End Date Chandrika Kurtz NP [address] [address] PCP - General NURSE PRACTITIONER 08/09/19 09/30/24 Danyel Slater MD [address] [facility] [address] [place] [address] PCP - General FAMILY PRACTICE 10/01/24 Thiago Davies MD [facility] [address] [place] [address] Safety Engineer CARDIOVASCULAR DISEASE 05/22/17 Jennifer Slater Referring Physician FAMILY PRACTICE 10/01/24 10/01/24 documented as of this encounter
--- OUTSIDE RECORDS SUMMARY | 2024-11-09 14:44 | XMS_ITS | Clinical Summary ---
Author Organization [facility] Address [address] [place] [address] Care Team Providers Care Humane Officer Name Role Phone Juliana Valdovinos MD Unavailable [phone] Danyel Slater MD Primary Care Provider [...] Department Care Team Description 09/24/2024 Results Follow-Up [facility] THREE [facility], [address] [address] Sylwia Georges RN USE ECHOCARDIOGRAM W CON, CT CHEST+ABD+PEL WO CON 09/22/2024 1:57 PM CDT - 09/22/2024 11:59 PM CDT Hospital Encounter [facility] [place] [address] Juliana Valdovinos MD Discharge Disposition: Home or Self Care (Routine Discharge) 09/22/2024 Travel 09/08/2024 3:39 PM CDT - 09/08/2024 11:59 PM CDT [facility] [place] [address] Juliana Valdovinos MD Discharge Disposition: Home or Self Care (Routine Discharge) 09/08/2024 3:27 PM CDT - 09/08/2024 3:38 PM CDT [facility] [place] [address] Juliana Valdovinos MD Discharge Disposition: Home or Self Care (Routine Discharge) 09/08/2024 3:00 PM CDT Office Visit [facility], [address] [address] Juliana Valdovinos MD Follow Up 09/08/2024 Results Follow-Up [facility] [address] Sylwia Georges, RN LIPID PANEL 09/08/2024 Orders [facility] [place] [address] Juliana Valdovinos MD 09/08/2024 Travel from Last [...] 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 Not [...] 09/20/2025 2:15 PM CDT Office Visit [facility] THREE [facility], [facility] [address] [place], [place] [id number] Rony Olea NP Three [facility] [address] [place] [address] Health Maintenance Due Date Last Done Comments [...] this topic Medical Devices Implanted Type Area Network Cable Installer Device Identifier Shelf Expiration Date Model / Serial / Lot Wire Sut 18in Myowr2 7;.5 [place]; Ccs-1 Mfil; Cnv - [id number] Implanted:Qty: 3 on 08/13/2019 by Scotty Chiang RNFA at [facility] Wire N/A: Sternum A[employer]E [employer] 12/09/2023 [id number] / / [id number] Description:STERNAL WIRES X 3 SANDEE BUTCHER ALSO HELPED WITH WIRES Suture Sternotomy Kit - [id number] Implanted:Qty: 5 on 08/13/2019 by Scotty Chiang RNFA at [facility] Wire N/A: Sternum A[employer]E [employer] 12/09/2023 [id number] / / [id number] Description:STERNAL WIRES X 5 SANDEE ETIENNE ALSO HELPED WITH WIRES Procedures Procedure Name Priority Date/Time Associated Diagnosis Comments USE ECHOCARDIOGRAM W CON Routine 09/22/2024 4:51 PM CDT Coronary artery disease involving tribe coronary artery of tribe heart without angina pectoris CT CHEST+ABD+PEL WO [...] Echocardiography Report Pat.Name: TRAM VIDAL MURIEL Pat.ID: [id number] St.Date: 09/22/2024 : [id number] ARUNA Grullon EWDPROV EWDPROV Exam Time: 3:42:00 [...] I BP 33.4 ml/m2 Right Atrium Minor [place] 30 mm RA Single Plane Right Atrium MO 9.57 mm Right Atrium Sy 31.1 ml Right Atrium Sy 53.6 mm Right Atrium Sy 14.9 ml/m2 Right Atrium Sy 14.2 cm2 Right Ventricle Right Ventricle 38 mm Right Ventricle 25 mm Major [place] 79 mm MMODE TA Tricuspid Annul 19.2 mm <Electronic Signature> 09/23/2024 05:14 PM Juliana Valdovinos M.D. Procedure Note Juliana Valdovinos MD - 09/23/2024 Echocardiography Report Pat.Name: VIDAL UGALDE Pat.ID: [id number] .Date: 09/22/2024 Anant.: [id number] ARUNA Grullon EWDPROV EWDPROV Exam Time: 3:42:00 [...] I BP 33.4 ml/m2 Right Atrium Minor [place] 30 mm RA Single Plane Right Atrium MO 9.57 mm Right Atrium Sy 31.1 ml Right Atrium Sy 53.6 mm Right Atrium Sy 14.9 ml/m2 Right Atrium Sy 14.2 cm2 Right Ventricle Right Ventricle 38 mm Right Ventricle 25 mm Major [place] 79 mm MMODE TA Tricuspid Annul 19.2 [...] 9:42 AM Narrative 09/30/2024 9:55 AM CDT [address] [address] Exam: CT Chest, Abdomen and Pelvis without [...] Procedure Note Juliana Harry MD - 09/30/[address] [address] Exam: CT Chest, Abdomen and Pelvis without [...] 205(H) <200 MG/DL 09/08/2024 4:16 PM CDT [facility] TRIGLYCERIDES 76 <150 MG/DL 09/08/2024 4:16 PM CDT [facility] HDL 58 >40.0 MG/DL 09/08/2024 4:16 PM CDT [facility] LDL (CALCULATED) 132(H) <100 MG/DL 09/08/2024 4:16 PM CDT [facility] Comment:CALCULATED USING THE FRIEDEWALD EQUATION NON HDL CHOLESTEROL 147(H) <130 MG/DL 09/08/2024 4:16 PM CDT [facility] CHOL/HDL RATIO 3.5 0.0 - 4.5 09/08/2024 4:16 PM CDT [facility] VLDL CALCULATION 15 5 - 55 MG/DL 09/08/2024 4:16 PM CDT [facility] LIPID INTERPRETATION 09/08/2024 4:16 PM CDT [facility] Comment: NIH CONCENSUS REPORT RECOMMENDATIONS: ADULT CHILD LOW RISK: CHOLESTEROL <200 <170 TRIGLYCERIDE <150 --- HDL >=60 --- LDL <100 <110 BORDERLINE: CHOLESTEROL 200-239 170-199 TRIGLYCERIDE 150-199 --- HDL 40-59 --- LDL 100-159 110-129 HIGH RISK: CHOLESTEROL >=240 >=200 TRIGLYCERIDE >=200 --- HDL <40 --- LDL >=160 >=130 09/08/2024 3:33 PM CDT us Juliana Valdovinos MD LABORATORY Final Result [facility] [address] [place] [address], [place] [phone] from Last 3 Months Insurance GREER Advance Directives * Full Code (Latest Code Status on File) Date Activated Date Inactivated Comments 08/10/2019 2:15 PM 08/17/2019 6:49 PM * Full Code Date Activated Date Inactivated Comments 08/10/2019 12:56 AM 08/10/2019 2:15 PM Care Teams Humane Officer Relationship Specialty Start Date End Date Danyel Slater MD [address] [facility] [address] [place] [address] PCP - General FAMILY PRACTICE 10/01/24 Juliana Valdovinos MD [facility] [address] [place] [address] [facility] Physician Assistant CARDIOVASCULAR DISEASE 05/22/17
== END 2024-11-09 14:33 | disposition home or self-care (01) ==
PROVIDERS: PCP Family Medicine; Visit Provider Surgery
DX: Z01.812 Encounter for preprocedural laboratory examination (principal); K43.2 Incisional hernia without obstruction or gangrene
CPT/HCPCS: 36415; 86850; 86900; 86901

== ENCOUNTER 2024-12-09 00:19 | Day surgery (SDC) | payer OTHER, SELFPAY ==
[2024-11-09 10:17] VITALS: BMI 30.4
--- NOTE | 2024-11-09 10:22 | PC.NURSE ---
Report to the Outpatient Waiting Room, entrance under the green pavilion located off [facility], at time _1000_ on date _[id number]_. Planned Procedure Time: _1200_.? Time changes happen often and if your time is changed the preop area will call you the afternoon before. - You and your visitor will be asked to self-screen and do not enter if you have any COVID symptoms. Please call surgeon if you need to reschedule. - A mask is optional within the hospital at this time. Patients may have clear liquids (water, carbonated beverages, clear teas, apple juice) until 3 hours prior to surgery with a maximum of 20 ounces. - No food from midnight until time of surgery and no smoking, or chewing tobacco (or any form of nicotine). No chewing gum, candy or mints. Take only the following medications with a SIP of water on the morning of surgery: ___Atenolol___ DO NOT STOP ANY OF YOUR OTHER PRESCRIPTION MEDICATIONS PRIOR TO SURGERY EXCEPT THE FOLLOWING Hold all vitamins and supplements for 3 days per anesthesiologist. Stop now. Medications to discontinue per physician Date to take last dose Please no make-up, nail pitcairn islander, hairspray, perfume, deodorant, or body powder the day of surgery.? No jewelry (including any body piercings) or valuables the day of surgery, leave them at home.? Please take a shower or bath the night before, or the morning of, surgery with an antibacterial soap.? Wear comfortable, loose fitting clothing.? - Jewelry must be removed prior to entering the operating room.? Rings and piercings that are not removed may be cut off. - The hospital will not accept responsibility for valuables.? - Please leave all valuables, including medications, at home the day of surgery. If you are going home after surgery, a licensed milk pickup truck driver must drive you home.? - NO public transportation without another adult if you receive anesthesia. - We recommend that an adult stay with you for 24 hours following discharge. - We also recommend that you do not drive, make important decision, drink alcoholic beverages, or take any drugs that were not prescribed by your health care provider for at least 24 hours after your discharge time. Follow any additional instructions given to you from your surgeon. Telephone instructions given to __Charles___and asked if any additional questions and then verbalized understanding. Patient advised to call surgeon office or pre surgery nurse liaison [phone] if any additional questions.
--- NOTE | 2024-11-26 13:33 | PC.NURSE ---
[facility] has started construction of its new state of the art ER which will open Spring 2026. With this, we anticipate parking may be a challenge for some our surgical patients and families. Parking spaces are limited but are available for all Surgical, obstetrics, and ER patients sharing this lot. If you arrive and find you are having a hard time finding a parking space, please note that we understand the challenges, please drive around the hospital and park near Hospital Entrance 1. When you enter this entrance, you can ask a volunteer to direct or take you back to the surgical waiting area to check in. We appreciate everyone?s understanding of these expected challenges while we build for your future. Report to the Outpatient Waiting Room, entrance under the green pavilion located off [address], at time _1200pm on date _12/09/24 . Planned Procedure Time: _1400pm .? Time changes happen often and if your time is changed the preop area will call you the afternoon before. - You and your visitor will be asked to self-screen and do not enter if you have any COVID symptoms. Please call surgeon if you need to reschedule. - A mask is optional within the hospital at this time. Patients may have clear liquids (water, carbonated beverages, clear teas, apple juice) until 3 hours prior to surgery with a maximum of 20 ounces. - No food from midnight until time of surgery and no smoking, or chewing tobacco (or any form of nicotine). No chewing gum, candy or mints. Take only the following medications with a SIP of water on the morning of surgery: __ATENOLOL DO NOT STOP ANY OF YOUR OTHER PRESCRIPTION MEDICATIONS PRIOR TO SURGERY EXCEPT THE FOLLOWING Hold all vitamins and supplements for 3 days per anesthesiologist. Medications to discontinue per physician N/A Date to take last dose____N/A Please no make-up, nail azeri, hairspray, perfume, deodorant, or body powder the day of surgery.? No jewelry (including any body piercings) or valuables the day of surgery, leave them at home.? Please take a shower or bath the night before, or the morning of, surgery with an antibacterial soap.? Wear comfortable, loose fitting clothing.? - Jewelry must be removed prior to entering the operating room.? Rings and piercings that are not removed may be cut off. - The hospital will not accept responsibility for valuables.? - Please leave all valuables, including medications, at home the day of surgery. If you are going home after surgery, a licensed haul truck driver must drive you home.? - NO public transportation without another adult if you receive anesthesia. - We recommend that an adult stay with you for 24 hours following discharge. - We also recommend that you do not drive, make important decision, drink alcoholic beverages, or take any drugs that were not prescribed by your health care provider for at least 24 hours after your discharge time. Follow any additional instructions given to you from your surgeon. Telephone instructions given to __CHARLES and asked if any additional questions and then verbalized understanding. Patient advised to call surgeon office or pre surgery nurse liaison [phone] if any additional questions.
--- NOTE | 2024-11-26 14:07 | PC.NURSE ---
PT STATES NO CHANGES IN HEALTH OR MEDICATIONS SINCE PREOP INTERVIEW ON 11/09/24. PREOP INSTRUCTIONS GIVEN TO PT TO INCLUDE INFORMATION RE: LIMITED PARKING DURING ER CONSTRUCTION PROJECT. PT VERBALIZES UNDERSTANDING.
[2024-12-09] VITALS (11 sets, daily range): BP systolic 141–159; BP diastolic 70–93; PULSE 61–70; RESP 14–20; TEMP 36.1–36.3; O2SAT 97–100
--- OUTSIDE RECORDS SUMMARY | 2024-12-09 00:23 | XMS_ITS | Encounter Summary ---
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 [address] [place] [address] Rony Olea, TRANSFORMATION LEAD [facility] [address] [place] [address] documented as of this encounter Procedures Procedure Name Priority Date/Time Associated Diagnosis Comments CBC (OUTSIDE LAB) Routine 05/19/2019 COMPREHENSIVE METABOLIC PANEL Routine 05/19/2019 LIPID PANEL Routine 05/19/2019 HEMOGLOBIN, GLYCOSYLATED Routine 05/19/2019 CBC (OUTSIDE LAB) Routine 06/11/2017 LIPID PANEL Routine 06/11/2017 HEMOGLOBIN, GLYCOSYLATED Routine 06/11/2017 THYROID STIM HORMONE TSH Routine 06/11/2017 documented in this encounter Results * HEMOGLOBIN, GLYCOSYLATED (05/19/2019) Pathologist [facility] HGB A1C 8.6 05/19/2019 us Doc [facility] LABORATORY Final Result * LIPID PANEL (05/19/2019) Pathologist [facility] CHOLESTEROL 166 HDL 57 TRIGLYCERIDES 182 LDL (CALCULATED) 73 05/19/2019 us Doc [facility] LABORATORY Final Result * COMPREHENSIVE METABOLIC PANEL (05/19/2019) Pathologist [facility] SODIUM S/P/B 138 POTASSIUM S/P/B 4.1 CO2 [...] on filedocumented in this encounter Care Teams Roving Machine Operator Relationship Specialty Start Date End Date Chandrika Kurtz NP [address] [address] PCP - General NURSE PRACTITIONER 08/09/19 09/30/24 Danyel Slater MD [address] [facility] [address] [place] [address] PCP - General FAMILY PRACTICE 10/01/24 Thiago Davies MD [facility] [address] [place] [address] [place] Laser Operator CARDIOVASCULAR DISEASE 05/22/17 Jennifer Slater Referring Physician FAMILY PRACTICE 10/01/24 10/01/24 documented as of this encounter
[2024-12-09] MEDS: LACTATED RINGERS 1,000 ML 30 ML IV CONT ×2 (11:15→13:48)
[2024-12-09] MEDS: ACETAMINOPHEN 500 MG TABLET 1000 MG PO (11:15)
[2024-12-09] MEDS: KETOROLAC 15 MG/ML VIAL (*BKC) IV PUSH (11:15)
--- NOTE | 2024-12-09 11:59 | WPDANESEPPF ---
Anes - Initial Pre Proc Eval Procedure: Operation Date: 12/09/24 12:00 Proposed Procedures p Robotic Assisted Incisional Hernia Repair with Mesh - Kylee Gupta MD Date/Time: 12/09/24 11:59 Surgeon: Kylee Gupta MD Pre Op Diagnosis: Incisional Hernia 11x9cm Patient Data Age: 59 Gender: M Height: 1.73 m Weight: 90.9 kg Allergies Allergy/AdvReac Type Severity Reaction Status Date / Time ciprofloxacin Allergy Unknown unknown Verified 11/26/24 13:32 Home Medications ?Medication ?Instructions ?Recorded ?Confirmed ?Type aspirin 81 mg tablet,delayed 81 mg PO DAILY 01/18/19 11/09/24 History release furosemide 20 mg tablet 20 mg PO QAM 01/18/19 11/09/24 History potassium chloride 10 mEq 10 meq PO DAILY 12/04/20 11/09/24 History tablet,extended release arginine oxoglurate 350 mg 350 mg PO DAILY 03/22/21 11/09/24 History tablet,extended release (L-Arginine (alpha-ketoglutarate)) fiber 1 tablet PO DAILY 03/22/21 11/09/24 History multivitamin 1 tablet PO DAILY 03/22/21 11/09/24 History omega-3 fatty acids-vitamin E 1 cap PO DAILY 03/22/21 11/09/24 History 1,000 mg capsule rosuvastatin 40 mg tablet 40 mg PO DAILY 01/01/22 11/09/24 History atenolol 25 mg tablet 50 mg PO DAILY 03/28/22 11/09/24 History allopurinol 300 mg tablet 300 mg PO DAILY #90 tabs 12/09/23 11/09/24 Rx citalopram 20 mg tablet (Celexa) 20 mg PO DAILY #90 tabs 12/09/23 11/09/24 Rx glipizide 5 mg tablet 5 mg PO DAILY #90 tabs 12/09/23 11/09/24 Rx lisinopril 40 mg tablet 40 mg PO DAILY #90 tabs 12/09/23 11/09/24 Rx metformin 500 mg tablet 500 mg PO BID #180 tabs 12/09/23 11/09/24 Rx pioglitazone 30 mg tablet (Actos) 30 mg PO DAILY #90 tabs 12/09/23 11/09/24 Rx tadalafil 20 mg tablet (Cialis) 20 mg PO DAILY PRN Erectile 07/20/24 11/09/24 Rx Dysfunction #30 tabs budesonide 0.25 mg/2 mL suspension 0.25 mg (2 mL) irrigation BID #120 10/19/24 11/09/24 Rx for nebulization mL methocarbamol 500 mg tablet 500 mg PO TID PRN muscle spasm #30 11/25/24 Rx tabs Laboratory Tests 12/09/24 12/09/24 10:42 10:48 POC Capillary Glucose 111 H mg/dl (65-105) Blood Type A Positive Antibody Screen Negative Patient hx anesthesia problems: none Family hx anesthesia problems: none Results Review: All pre-operative results and documents have been reviewed as part of the pre-operative evaluation. [facility] Past Medical History Medical History Cervical radiculopathy at C6 History of back strain Carpal tunnel syndrome on left Hx of myocardial infarction (~2019) Erectile dysfunction Mixed hyperlipidemia Smoker Obesity Arthritis Hypertension DIVYA (obstructive sleep apnea) Coronary artery disease due to lipid rich plaque Type 2 diabetes mellitus with other circulatory complications Gout due to renal impairment Surgical History Surgical History History of carpal tunnel surgery of left wrist History of heart bypass surgery (~2019) H/O heart artery stent (~2019) Family History Family History Father Family history of diabetes mellitus in first degree relative Mother Family history of heart disease in male family member before age 55 Other Depression Diabetes mellitus Family history of allergic disorder Family history of cardiovascular disease Family history of osteoarthritis Heart disease High cholesterol Hypertension Social History Social History (Updated 12/09/24 @ 11:59 by Nestor Dougherty MD) Smoking packs per day: 0.5 Smoking cigarettes per day: 10.0 Years smoked: 30 Smoking pack-years: 15.00 Smoking status: Former smoker Tobacco type: cigarettes Second hand tobacco smoke exposure: Yes Smoking end date: 08/08/18 Alcohol intake: current Drinks per week: 4 Substance use: never Substance use type: marijuana Other substance usage details: Weekly Living arrangements: with family Occupation/Education: unemployed Additional occupation/education comments: self-employed Gender identity (if verbalized by the patient): Male Spiritual care concerns: No Agree to blood products: Yes Anes - Eval Final PreProcedure Day of Procedure 12/09/24 11:59 Patient weight: obese Heart: regular rate and rhythm Lungs: clear to auscultation Airway: Mallampati scale class III Neurological: alert and oriented Last oral intake: >/= 8 hours ASA classification: III Emergent: no Anesthetic plan: proceed Anesthesia type and monitoring: general ETT and standard monitoring Results Review: All pre-operative results and documents have been reviewed as part of the pre-operative evaluation. Informed Consent: The patient's anesthetic plan and its attendant risks and benefits were discussed with the patient/family/POA. Questions were solicited and answers provided to the satisfaction of the patient/family/POA.
--- NOTE | 2024-12-09 12:03 | PM.IMHP ---
H&P: HPI History of Present Illness Date/Time: 12/09/24 12:03 Chief Complaint: incisional hernia Narrative: Vidal is a 59 y/o male who presents to the office at the request of Bryon Florez MD for an evaluation of an abdominal bulge. Patient reports he first noticed the bulge approximately 5 years ago. He states he had bypass surgery and about 6 months after he noticed the bulging. Bulge is reducible and he denies pain, but coughing is uncomfortable. He states he is having surgery on his sinuses 10/19/24. 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 renal impairment Surgical History Surgical History History of carpal tunnel surgery of left wrist History of heart bypass surgery (~2019) H/O heart artery stent (~2020) Family History Family History Father Family history of diabetes mellitus in first degree relative Mother Family history of heart disease in male family member before age 55 Other Depression Diabetes mellitus Family history of allergic disorder Family history of cardiovascular disease Family history of osteoarthritis Heart disease High cholesterol Hypertension Social History Social History Smoking packs per day: 0.5 Smoking cigarettes per day: 10.0 Years smoked: 30 Smoking pack-years: 15.00 Smoking status: Former smoker Tobacco type: cigarettes Second hand tobacco smoke exposure: Yes Smoking end date: 08/08/18 Alcohol intake: current Drinks per week: 4 Substance use: never Substance use type: marijuana Other substance usage details: Weekly Living arrangements: with family Occupation/Education: unemployed Additional occupation/education comments: self-employed Gender identity (if verbalized by the patient): Male Spiritual care concerns: No Agree to blood products: Yes Meds Home Medications and Allergies Home Medications ?Medication ?Instructions ?Recorded ?Confirmed ?Type aspirin 81 mg tablet,delayed 81 mg PO DAILY 01/18/19 11/09/24 History release furosemide 20 mg tablet 20 mg PO QAM 01/18/19 11/09/24 History potassium chloride 10 mEq 10 meq PO DAILY 12/04/20 11/09/24 History tablet,extended release arginine oxoglurate 350 mg 350 mg PO DAILY 03/22/21 11/09/24 History tablet,extended release (L-Arginine (alpha-ketoglutarate)) fiber 1 tablet PO DAILY 03/22/21 11/09/24 History multivitamin 1 tablet PO DAILY 03/22/21 11/09/24 History omega-3 fatty acids-vitamin E 1 cap PO DAILY 03/22/21 11/09/24 History 1,000 mg capsule rosuvastatin 40 mg tablet 40 mg PO DAILY 01/01/22 11/09/24 History atenolol 25 mg tablet 50 mg PO DAILY 03/28/22 11/09/24 History allopurinol 300 mg tablet 300 mg PO DAILY #90 tabs 12/09/23 11/09/24 Rx citalopram 20 mg tablet (Celexa) 20 mg PO DAILY #90 tabs 12/09/23 11/09/24 Rx glipizide 5 mg tablet 5 mg PO DAILY #90 tabs 12/09/23 11/09/24 Rx lisinopril 40 mg tablet 40 mg PO DAILY #90 tabs 12/09/23 11/09/24 Rx metformin 500 mg tablet 500 mg PO BID #180 tabs 12/09/23 11/09/24 Rx pioglitazone 30 mg tablet (Actos) 30 mg PO DAILY #90 tabs 12/09/23 11/09/24 Rx tadalafil 20 mg tablet (Cialis) 20 mg PO DAILY PRN Erectile 07/20/24 11/09/24 Rx Dysfunction #30 tabs budesonide 0.25 mg/2 mL suspension 0.25 mg (2 mL) irrigation BID #120 10/19/24 11/09/24 Rx for nebulization mL methocarbamol 500 mg tablet 500 mg PO TID PRN muscle spasm #30 11/25/24 Rx tabs Allergies Allergy/AdvReac Type Severity Reaction Status Date / Time ciprofloxacin Allergy Unknown unknown Verified 11/26/24 13:32 Exam Const: General: cooperative, comfortable and no acute distress Resp: Auscultation: clear to auscultation bilaterally Cardio: Rate: regular rate Rhythm: regular rhythm GI: Inspection: normal to inspection, non-distended and incision GI Palp: Yes abdominal tenderness and Yes Hernia present Other: upper abdominal incisional hernia Assessment and Plan Assessment and plan (1) Incisional hernia: Code(s): K43.2 - Incisional hernia without obstruction or gangrene Status: Acute Assessment and Plan: will setup for robotic assisted repair with mesh
--- NOTE | 2024-12-09 12:05 | WPDHPUPDATE1 ---
History and Physical Update Update Date/Time: 12/09/24 12:05 History and Physical has been reviewed, including an updated exam of the patient. There are NO changes in the patient's condition. Risks, benefits, and alternatives have been discussed and questions answered. Patient agrees to proceed with procedure.
--- NOTE | 2024-12-09 14:03 | W.PM.PROC2 ---
Procedure Note - Detailed Date of Procedure 12/09/24 Pre-op Diagnosis Incisional hernia measuring 8 x 5 cm Post-op Diagnosis Same Procedure Performed robotic assisted repair of incisional hernia measuring 8 x 5 cm with mesh Surgeon Kylee Gupta MD Anesthesia General and Local Indications 59-year-old male presenting the office with a large incisional hernia in the epigastric area. Patient reports hernias been present for least 5 years and 1st noticed about 6 months after open heart surgery. Findings Epigastric hernia measuring 8 x 5 cm Description of Procedure The patient was taken the operating room placed in the supine position. After adequate induction of general anesthesia, the patient was prepped and draped in normal sterile fashion. A time-out was then done to verify the patient's identity as well as the procedure being performed. I began by making a 8 mm incision in the infraumbilical area. Through this, a Veress needle was placed into the peritoneal cavity and CO2 gas was insufflated. After adequate pneumoperitoneum was achieved, a 8 mm Optiview trocar was placed through this incision under direct visualization. I then placed the laparoscope through this trocar site and under direct visualization I placed a further 8 mm port in the left mid abdomen as well as an additional 8 mm port in the right mid abdomen. The robot was then docked to the 3 port sites. I then went to the robotic console. I began by identifying the hernia. A large epigastric hernia was noted. Previous imaging did suggest transverse colon in the hernia, however, there was no incarceration at this point. I then took down the falciform to allow adequate anchoring of the mesh. I then closed the approximately 8 x 5 cm defect with 0 strata fix suture. I then placed a 15 x 10 cm Ventralight mesh into the abdominal cavity. The positional stitch was placed in the middle of the mesh and brought up centering the mesh over the defect. Once this was done, I used 2 0 V lock suture x 2 to circumferentially suture the mesh to the abdominal. Once the mesh was completely sutured in, I was happy with our tension-free repair. The mesh was noted to have good overlap of the defect. At this point, the robot was undocked and all ports were removed. All port sites were then closed with 4 O Monocryl subcuticular suture. The patient tolerated the procedure well, is extubated in the operating room postoperative, OB transferred to the recovery room in stable condition. Implants 15 x 10 cm Ventralight mesh Estimated Blood Loss 10 Drains No Packing No Pathology None sent Complications No immediate complications Condition Stable Disposition PACU [facility] Billing Surgery - Charge Forward: Surgery Billing
[2024-12-09] MEDS: fentaNYL CITRATE INJ (*CRX) 100 MCG/2 ML VIAL 25 MCG IV PUSH ×4 (14:35→14:53)
[2024-12-09] MEDS: oxyCODONE HCL (*CRX) 5 MG TAB IR PO (15:48)
== END 2024-12-09 16:22 | disposition home or self-care (01) ==
PROVIDERS: PCP Family Medicine; Visit Provider Surgery
PROC: (CPT 49593; principal; 2024-12-09 12:00)
DX: K43.2 Incisional hernia without obstruction or gangrene (principal); E11.9 Type 2 diabetes mellitus without complications; Z87.891 Personal history of nicotine dependence; F12.90 Cannabis use, unspecified, uncomplicated; E66.9 Obesity, unspecified; Z68.31 Body mass index [BMI] 31.0-31.9, adult
CPT/HCPCS: 49593; S2900; 36415; 82948; 86850; 86900; 86901; J0690; A9270; C1781; J1885; J2003; J2250; J2405; J2704; J3010; J7120

== ENCOUNTER 2024-12-29 15:44 | Outpatient (CLI) | payer OTHER, SELFPAY ==
[2024-12-29 18:26] LABS: Hematocrit 38.9 % (42.0-52.0); Hemoglobin 13.3 g/dL (14.0-18.0); Immature Granulocyte Percent A 0.3 % (0-0.5); Lymphocytes Absolute Auto 0.87 K/mm3 (0.9-3.2); Mean Corpuscular HGB Conc 34.2 g/dl (32-36); Mean Corpuscular Hemoglobin 32.0 pg (26-34); Mean Corpuscular Volume 93.7 fl (80-100); Nucleated Red Blood Cells Absolute Auto 0.000 K/mm3 (0.0-0.012); Nucleated Red Blood Cells Perc 0.0 % (0.0-0.2); Platelet Count Result 262 k/mm3 (150-375); Red Blood Count 4.15 M/mm3 (4.6-6.20); White Blood Count 5.9 K/mm3 (4.5-10.0)
[2024-12-29 19:14] LABS: Alanine Aminotransferase 16 U/L (6-50); Albumin Level 4.6 g/dL (3.5-5.1); Alkaline Phosphatase 91 U/L (38-126); Anion Gap 9 mmol/L (4-12); Aspartate Amino Transferase 28 U/L (17-59); Bilirubin,Total 0.7 mg/dL (0.2-1.3); Blood Urea Nitrogen 15 mg/dL (9-20); Calcium 9.8 mg/dL (8.4-10.2); Carbon Dioxide 29 mmol/L (22-30); Chloride 102 mmol/L (98-107); Cholesterol 204 mg/dL (0-200); Estimated Glomerular Filt Rate > 60; Glucose 152 mg/dL (65-110); HDL Direct 57 mg/dL; Potassium 4.1 mmol/L (3.4-5.0); Sodium 140 mmol/L (137-145); Total Protein 8.9 g/dL (6.3-8.2); Triglycerides 82 mg/dL (<150)
[2024-12-29 19:20] LABS: Hemoglobin A1C 5.9 % (<5.7)
--- OUTSIDE RECORDS SUMMARY | 2024-12-29 19:55 | XMS_ITS | Encounter Summary ---
Author Organization [facility] Address [facility] [place] [address] Care Team Providers Care National Accounts Recruiter Name Role Phone Thiago Davies MD Unavailable [phone] Chandrika Kurtz NP Primary Care Provider [phone] Danyel Slater MD Primary Care Provider Encounter Details Date Type Department Care Team (Late Contact Info) Description 08/05/2017 Abstract [facility] at [facility], [facility] [address] [place] [address] Sharif Sorensen MA Social History [...] 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 Not on file Not on file documented as of this encounter Plan of Treatment Upcoming Encounters Date Type Department Care Team (Late Contact Info) Description 09/20/2025 2:15 PM CDT Office Visit [facility], [facility] [address] [place] [address] Rony Olea, PHTHALIC ACID PURIFIER [facility] [address] [place] [address] documented as of this encounter Procedures Procedure Name Priority Date/Time Associated Diagnosis Comments CBC (OUTSIDE LAB) Routine 05/19/2019 COMPREHENSIVE METABOLIC PANEL Routine 05/19/2019 LIPID PANEL Routine 05/19/2019 HEMOGLOBIN, GLYCOSYLATED Routine 05/19/2019 CBC (OUTSIDE LAB) Routine 06/11/2017 LIPID PANEL Routine 06/11/2017 HEMOGLOBIN, GLYCOSYLATED Routine 06/11/2017 THYROID STIM HORMONE TSH Routine 06/11/2017 documented in this encounter Results * HEMOGLOBIN, GLYCOSYLATED (05/19/2019) Pathologist [facility] HGB A1C 8.6 05/19/2019 us Doc [facility] LABORATORY Final Result * LIPID PANEL (05/19/2019) Pathologist [facility] CHOLESTEROL 166 HDL 57 TRIGLYCERIDES 182 LDL (CALCULATED) 73 05/19/2019 us Doc [facility]OR[facility] Final Result * COMPREHENSIVE METABOLIC PANEL (05/19/2019) Pathologist [facility] SODIUM S/P/B 138 POTASSIUM S/P/B 4.1 CO2 [...] on filedocumented in this encounter Care Teams National Accounts Recruiter Relationship Specialty Start Date End Date Chandrika Kurtz NP [address] [address] PCP - General NURSE PRACTITIONER 08/09/19 09/30/24 Danyel Slater MD [address] [facility] [address] [place] [address] PCP - General FAMILY PRACTICE 10/01/24 Thiago Davies MD [facility] [address] [place] [address] [place] Senior Analytic Consultant CARDIOVASCULAR DISEASE 05/22/17 Jennifer Slater Referring Physician FAMILY PRACTICE 10/01/24 10/01/24 documented as of this encounter
--- OUTSIDE RECORDS SUMMARY | 2024-12-29 19:55 | XMS_ITS | Clinical Summary ---
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 file Not [...] 09/20/2025 2:15 PM CDT Office Visit [facility] [facility], [facility] [address] [place], [place] [id number] Rony Olea NP [facility] [address] [place] [address] Health Maintenance Due Date Last Done Comments Colorectal Cancer Screening Colonoscopy (10 Years) 1967 Annual Physical 07/13/1970 Hepatitis C 07/13/1985 DTaP, Tdap and Td Vaccines ( 1 - Tdap) 07/13/1986 Hepatitis B Vaccines (1 of 3 - 19+ 3-dose series) 07/13/1986 Pneumococcal Vaccine: 50+ Years (1 of 2 - PCV) 07/13/1986 Zoster Vaccines (1 of 2) 07/13/2017 COVID-19 Vaccine (3 - 2024-2 6 season) 2024 06/06/2020, 05/16/2020 Influenza Adult (#1) 2024 12/30/2011 Hepatitis A Vaccines Aged Out No long er eligible based on patient's age to complete this topic Meningococcal B Vaccine Aged Out No l onger eligible based on patient's age to complete this topic Meningococcal Vaccine Aged Out No miguel eliezer eligible based on patient's age to complete this topic RSV Immunizations Under 20 Months Aged Out No longer eligible b ased on patient's age to complete this topic Medical Devices Implanted Type Area Potato Peeling Machine Operator Device Identifier Shelf Expiration Date Model / Serial / Lot Wire Sut 18in Myowr2 7;.5 [place]; Ccs-1 Mfil; Cnv - [id number] Implanted:Qty: 3 on 08/13/2019 by Scotty Chiang RNFA at [facility] Wire N/A: [employer] 12/09/2023 [id number] / / [id number] Description:STERNAL WIRES X 3 SANDEE BUTCHER ALSO HELPED WITH WIRES Suture Sternotomy Kit - [id number] Implanted:Qty: 5 on 08/13/2019 by Scotty Chiang RNFA at [facility] Wire N/A: [employer] 12/09/2023 [id number] / / [id number] Description:STERNAL WIRES X 5 SANDEE ETIENNE ALSO HELPED WITH WIRES Insurance [place] [employer] Advance Directives * Full Code (Latest Code Status on File) Date Activated Date Inactivated Comments 08/10/2019 2:15 PM 08/17/2019 6:49 PM * Full Code Date Activated Date Inactivated Comments 08/10/2019 12:56 AM 08/10/2019 2:15 PM Care Teams Obedience Trainer Relationship Specialty Start Date End Date Danyel Slater MD [address] [facility] [address] [place] [address] PCP - General FAMILY PRACTICE 10/01/24 Thiago Davies MD [facility]. [facility] [address] [place] [address] [place] Buzzsaw Operator CARDIOVASCULAR DISEASE 05/22/17
== END 2024-12-29 15:45 | disposition home or self-care (01) ==
LOC: ANHGOSHLAB 15:44
PROVIDERS: PCP Family Medicine; Visit Provider Nurse Practitioner Family
DX: E78.5 Hyperlipidemia, unspecified (principal); I10 Essential (primary) hypertension; E11.9 Type 2 diabetes mellitus without complications
CPT/HCPCS: 36415; 80053; 80061; 83036; 85025

== ENCOUNTER 2025-02-07 15:58 | Outpatient (CLI) | payer OTHER, SELFPAY ==
--- NOTE | ~2025-02-07 | MR_ITS ---
EXAMINATION: MR cervical spine wo con DATE: 02/07/2025 16:33 INDICATION: Other spondylosis with radiculopathy. TECHNIQUE: Magnetic resonance imaging (MRI) of the cervical spine was performed without intravenous contrast. COMPARISON: None FINDINGS: There is kyphosis of cervical spine. Vertebral body heights are normal. There is mildly decreased disc height at C3-C4 and C5-C6 and severely decreased disc height at C6-C7. The spinal cord signal intensity is normal. The following disc levels are specifically discussed: C2-C3: The disc does not extend beyond the endplate margin. There is no uncovertebral joint osteoarthritis. There is severe bilateral facet joint osteoarthritis. There is mild left neural foraminal stenosis. There is no central canal stenosis. C3-C4: There is a central protrusion. There is mild right and moderate left uncovertebral joint osteoarthritis. There is moderate bilateral facet joint osteoarthritis. There is mild bilateral neural foraminal stenosis. There is mild central canal stenosis with ventral indentation of the spinal cord. C4-C5: There is a central extrusion. There is mild bilateral uncovertebral joint osteoarthritis. There is mild bilateral facet joint osteoarthritis. There is no neural foraminal stenosis. There is mild central canal stenosis with ventral indentation of the spinal cord. C5-C6: There is a central extrusion. There is moderate right and severe left uncovertebral joint osteoarthritis. There is mild right and moderate left facet joint osteoarthritis. There is moderate right and severe left neural foraminal stenosis. There is moderate central canal stenosis with ventral and dorsal indentation of the spinal cord. C6-C7: The disc is bulging. There is severe bilateral uncovertebral joint osteoarthritis. There is moderate bilateral facet joint osteoarthritis. There is moderate and severe left neural foraminal stenosis. There is moderate central canal stenosis with ventral and dorsal indentation of the spinal cord. C7-T1: There is a central protrusion. There is no uncovertebral joint osteoarthritis. There is severe bilateral facet joint osteoarthritis. There is mild bilateral neural foraminal stenosis. There is mild central canal stenosis. IMPRESSION: 1. Severe cervical spondylosis. Reviewed, dictated and finalized at location E. [employer] UNDERWRITER
--- OUTSIDE RECORDS SUMMARY | 2025-02-07 16:04 | XMS_ITS | Encounter Summary ---
Author Organization [facility] Address [facility] [place] [address] Care Team Providers Care Library Technical Assistant Name Role Phone Thiago Davies MD Unavailable [phone] Chandrika Kurtz NP Primary Care Provider [phone] Danyel Slater MD Primary Care Provider Encounter Details Date Type Department Care Team (Late Contact Info) Description 08/05/2017 Abstract [facility] at [facility], 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 file Not on file documented as of this encounter Plan of Treatment Upcoming Encounters Date Type Department Care Team (Late Contact Info) Description 09/20/2025 2:15 PM CDT Office Visit [facility], [facility] [address] [place] [address] Rony Olea, COMMODITY DIRECTOR [facility] [address] [place] [address] documented as of this encounter Procedures Procedure Name Priority Date/Time Associated Diagnosis Comments CBC (OUTSIDE LAB) Routine 05/19/2019 COMPREHENSIVE METABOLIC PANEL Routine 05/19/2019 LIPID PANEL Routine 05/19/2019 HEMOGLOBIN, GLYCOSYLATED Routine 05/19/2019 CBC (OUTSIDE LAB) Routine 06/11/2017 LIPID PANEL Routine 06/11/2017 HEMOGLOBIN, GLYCOSYLATED Routine 06/11/2017 THYROID STIM HORMONE TSH Routine 06/11/2017 documented in this encounter Results * HEMOGLOBIN, GLYCOSYLATED (05/19/2019) Pathologist [facility] HGB A1C 8.6 05/19/2019 us Doc [facility] LABORATORY Final Result * LIPID PANEL (05/19/2019) Pathologist [facility] CHOLESTEROL 166 HDL 57 TRIGLYCERIDES 182 LDL (CALCULATED) 73 05/19/2019 us Doc [facility] LABORAT[facility] Final Result * COMPREHENSIVE METABOLIC PANEL (05/19/2019) Pathologist [facility] SODIUM S/P/B 138 POTASSIUM S/P/B 4.1 CO2 [...] on filedocumented in this encounter Care Teams Library Technical Assistant Relationship Specialty Start Date End Date Chandrika Kurtz NP [address] [address] PCP - General NURSE PRACTITIONER 08/09/19 09/30/24 Danyel Slater MD [address] [facility] [address] [place] [address] PCP - General FAMILY PRACTICE 10/01/24 Thiago Davies MD [facility] [address] [place] [address] Colp Director Of Vital Statistics CARDIOVASCULAR DISEASE 05/22/17 Jennifer Slater Referring Physician FAMILY PRACTICE 10/01/24 10/01/24 documented as of this encounter
--- OUTSIDE RECORDS SUMMARY | 2025-02-07 16:04 | XMS_ITS | Clinical Summary ---
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 file Not [...] 09/20/2025 2:15 PM CDT Office Visit [facility] [facility], [facility] [address] [place], [place] [id number] Rony Olea NP [facility] [address] [place] [address] Health Maintenance Due Date Last Done Comments [...] this topic Medical Devices Implanted Type Area Range Operator Device Identifier Shelf Expiration Date Model / Serial / Lot Wire Sut 18in Myowr2 7;.5 [place]; Ccs-1 Mfil; Cnv - [id number] Implanted:Qty: 3 on 08/13/2019 by Scotty Chiang RNFA at [facility] Wire N/A: [employer] 12/09/2023 [id number] / / [id number] Description:STERNAL WIRES X 3 SANDEE BUTCHER ALSO HELPED WITH WIRES Suture Sternotomy Kit - [id number] Implanted:Qty: 5 on 08/13/2019 by Scotty Chiang RNFA at [facility] Wire N/A: [employer] 12/09/2023 [id number] / / [id number] Description:STERNAL WIRES X 5 SANDEE ETIENNE ALSO HELPED WITH WIRES Insurance [place] [employer] Advance Directives * Full Code (Latest Code Status on File) Date Activated Date Inactivated Comments 08/10/2019 2:15 PM 08/17/2019 6:49 PM * Full Code Date Activated Date Inactivated Comments 08/10/2019 12:56 AM 08/10/2019 2:15 PM Care Teams Nurse Practitioner Home Assessments Relationship Specialty Start Date End Date Danyel Slater MD [address] [facility] [address] [place] [address] PCP - General FAMILY PRACTICE 10/01/24 Thiago Davies MD [facility]. [facility] [address] [place] [address] [place] Executive Vice President And Chief Operating Officer CARDIOVASCULAR DISEASE 05/22/17
== END 2025-02-07 15:59 | disposition home or self-care (01) ==
PROVIDERS: PCP Family Medicine; Visit Provider Family Medicine
DX: M47.22 Other spondylosis with radiculopathy, cervical region (principal)
CPT/HCPCS: 72141

== ENCOUNTER 2025-02-16 11:42 | Outpatient (CLI) | payer OTHER, SELFPAY ==
--- NOTE | ~2025-02-16 | XR_ITS ---
[id number] Indication: M47.812 - Spondylosis without myelopathy or radiculopathy... Comparison: None Findings: The vertebral heights are intact. No fracture or subluxation. Moderate loss of disc height at C5-6 and C6-7. Soft tissues unremarkable Impression: No acute abnormality. Reviewed, dictated and finalized at location P. [employer] SYSTEM[employer] DEVELOPER Impression: No acute abnormality.
== END 2025-02-16 11:43 | disposition home or self-care (01) ==
PROVIDERS: PCP Family Medicine; Visit Provider Neurological Surgery
DX: M47.812 Spondylosis without myelopathy or radiculopathy, cervical region (principal)
CPT/HCPCS: 72040